=== PATIENT | female | born 1940 | race Caucasian/White ===

== ENCOUNTER 2024-07-07 18:41 | Inpatient (IN) | payer MEDICARE, SELFPAY ==
[2024-07-07] VITALS (14 sets, daily range): BP systolic 143–195; BP diastolic 74–87; PULSE 63–81; RESP 16–32; TEMP 36.9; O2SAT 92–100; BMI 20.7
--- NOTE | 2024-07-07 19:02 | ED_ITS ---
HPI - General Adult General Chief complaint: Fall Stated complaint: Fall/Down since 0100 Time Seen by Provider: 07/07/24 18:44 History of Present Illness HPI narrative: 84-year-old female with ground level fall last early this morning 1:00 a.m. about 17 hours ago in her long-term community home [facility] or she usually is living alone, she has not recall tripping on anything, however she accidentally turned the lights off and was trying to ambulate in the dark and fell, was unable to get up from the floor due to left hip pain, eventually her son came home, 911 was called, EMS had some concerns that the son did not seem to be assisting her to get up from the floor, otherwise house reportedly in good repair, no assault suspected. She denies headache, neck pain, upper mid lower back pain, upper extremity pains, right lower extremity pain, anterior chest pain, abdomen pain. She denies nausea or vomiting. No trouble breathing. No recent illness symptoms, diarrhea, vomiting, fevers, chills. Related Data Allergies Allergy/AdvReac Type Severity Reaction Status Date / Time No Known Drug Allergies Allergy Verified 07/07/24 22:55 Exam Narrative Exam Narrative: GENERAL: Well-developed patient, in mild distress. HEAD: Atraumatic. Normocephalic. EYES: Pupils equal round and reactive. Extraocular motions intact. No scleral icterus. No injection or drainage. ENT: Nose without bleeding, purulent drainage. Throat without erythema, tonsillar hypertrophy or exudate. Airway patent. NECK: Trachea midline. Non tender CARDIOVASCULAR: Regular rate and rhythm without murmurs, gallops, or rubs. RESPIRATORY: Clear to auscultation. Breath sounds equal bilaterally. No wheezes, rales, or rhonchi. GASTROINTESTINAL: Abdomen soft, non-tender, nondistended. EXTREMITIES: No edema or joint tenderness. Tenderness to left anterior and lateral hip, no limb like discrepancy, no gross deformity to thigh. Good DP pulses. BACK: Nontender without deformity or crepitance. No flank tenderness. NEURO: AOx3. 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 Stat 07/07/24 20:12 XR chest 1V Stat 07/07/24 20:13 EKG-12 Lead Stat 07/07/24 22:05 CBC Auto Diff [Complete Blood Count AUTO DIFF] Stat CMP [Comprehensive Metabolic Panel] Stat CPK [Creatine Kinase] Stat Prothrombin Time INR Stat 07/07/24 22:44 Urinalysis and Microscopic Stat Urine Culture Stat Acetaminophen (Acetaminophen 650 Mg Supp) 650 mg HI Q4HR PRN PRN Reason: Fever/Mild Pain (1-3) Enoxaparin Sodium (Enoxaparin 40 Mg/0.4 Ml Syringe) 40 mg SUBCUT DAILY [place] Hydromorphone HCl (Hydromorphone 0.5 Mg Inj) 1 mg IV Q2H PRN PRN Reason: Pain, Severe (7-10) Hydromorphone HCl (Hydromorphone 0.5 Mg Inj) 0.5 mg IV Q2H PRN PRN Reason: Pain, Moderate (4-6) Ceftriaxone Sodium 1,000 mg/ (Sodium Chloride) 100 mls @ 200 mls/hr IV Q24H [place] Naloxone HCl (Naloxone 0.4 Mg/Ml Vial) 0.2 mg IV Q2MIN PRN PRN Reason: Opiate Reversal Discontinued Medications Sodium Chloride (Normal Saline 0.9%) 1,000 mls @ 1,000 mls/hr IV BOLUS ONE Stop: 07/07/24 23:45 Last Infusion: 07/08/24 00:30 Dose: Infused Documented By: Admin: 07/07/24 22:57 Dose: 1,000 mls/hr Documented By: ALEKS Ceftriaxone Sodium 1,000 mg/ (Sodium Chloride) 100 mls @ 200 mls/hr IV NOW ONE Stop: 07/07/24 23:43 Last Infusion: 07/08/24 00:30 Dose: 0 mls/hr Documented By: Admin: 07/08/24 00:02 Dose: 200 mls/hr Documented By: ALEKS Vital Signs Vital signs: Vital Signs - 8 hr 07/07/24 18:46 07/07/24 18:47 07/07/24 18:48 Temperature 98.4 F Pulse Rate 81 72 Respiratory Rate 16 Blood Pressure 143/87 H 143/87 H Pulse Oximetry 98 97 Oxygen Delivery Method Room Air 07/07/24 19:00 07/07/24 19:00 07/07/24 19:30 Temperature Pulse Rate 70 65 Respiratory Rate 25 H 25 H Blood Pressure 195/83 H Pulse Oximetry 100 100 Oxygen Delivery Method Room Air 07/07/24 19:31 07/07/24 19:31 07/07/24 20:00 Temperature Pulse Rate 63 65 Respiratory Rate 27 H 32 H Blood Pressure 173/74 H Pulse Oximetry 100 92 Oxygen Delivery Method 07/07/24 20:00 07/07/24 20:30 07/07/24 21:00 Temperature Pulse Rate 69 66 Respiratory Rate 23 22 Blood Pressure 172/74 H Pulse Oximetry 99 100 Oxygen Delivery Method 07/07/24 21:30 07/07/24 22:00 07/07/24 22:30 Temperature Pulse Rate 70 72 68 Respiratory Rate 31 H 24 26 H Blood Pressure 172/74 H Pulse Oximetry 100 98 100 Oxygen Delivery Method 07/07/24 23:00 07/07/24 23:30 07/08/24 00:00 Temperature Pulse Rate 71 77 73 Respiratory Rate 24 20 22 Blood Pressure Pulse Oximetry 100 99 99 Oxygen Delivery Method Medical Decision Making Lab Data Lab results reviewed: Yes I reviewed the patient's lab results. Lab results narrative: White blood cell count 34842, hemoglobin 14, platelets adequate. Basic metabolic panel unremarkable. Liver functions show mild transaminitis, normal alk phos and T bili noted. PT INR 0.9 normal noted. CPK 2340 elevated. Renal function normal. Urinalysis pending. 07/07/24 22:05 07/07/24 22:05 Labs: Lab Results 07/07/24 07/07/24 Range/Units 22:05 22:44 WBC 10.8 (4.5-11.0) X10^3/uL RBC 4.53 (4.0-5.2) X10^6/uL Hgb 14.0 (12.0-16.0) g/dL Hct 42.6 (36-46) % MCV 94.2 (80-100) fL MCH 30.8 (26-34) PG MCHC 32.7 (30-36) % RDW 14.3 (11.6-14.8) % Plt Count 199 (150-400) X10^3/uL Neut % (Auto) 78.2 H (50-75) % Lymph % (Auto) 12.4 L (25-40) % [place] % (Auto) 8.9 (3-14) % Eos % (Auto) 0.1 L (2-4) % Baso % (Auto) 0.4 (0-2) % Neut # (Auto) 8500 H (5177-5207) /uL Lymph # (Auto) 1300 (4592-2057) /uL [place] # (Auto) 1000 H (0-900) /uL Eos # (Auto) 0 (0-450) /uL Baso # (Auto) 0 (0-100) /uL PT 10.5 (9.4-12.5) SECONDS INR 0.9 (0.9-1.3) Sodium 140 (137-145) mmol/L Potassium 4.7 (3.4-5.1) mmol/L Chloride 107 (98-107) mmol/L Carbon Dioxide 25 (22-32) mmol/L BUN 24 H (7-17) mg/dL Creatinine 0.76 (0.52-1.04) mg/dL Estimated GFR > 60 (>60) mL/min BUN/Creatinine Ratio 31.6 H (6-22) Glucose 119 H (80-110) mg/dL Calcium 11.6 H (8.4-10.2) mg/dL Total Bilirubin 1.0 (0.2-1.3) mg/dL AST 56 H (14-36) IU/L ALT 35 H (<35) IU/L Alkaline Phosphatase 113 (38-126) U/L Total Creatine Kinase 2341 H (30-135) U/L Total Protein 7.3 (6.3-8.2) g/dL Albumin 4.4 (3.5-5.0) g/dL Globulin 2.9 (1.7-4.1) g/dL Albumin/Globulin Ratio 1.5 (1.0-2.8) Urine Color Yellow Urine Appearance Sl cloudy Urine pH 6.0 (4.5-8.0) Ur Specific [place] 1.025 (1.000-1.035) Urine Protein Negative (Negative) Urine Glucose (UA) Negative (Negative) g/dL Urine Ketones Trace H (NEGATIVE) Urine Occult Blood 1+ H (Negative) Urine Nitrate Negative (Negative) Urine Bilirubin Negative (NEGATIVE) Urine Urobilinogen 0.2 (0.2) E.U./dL Ur Leukocyte Esterase Negative (NEGATIVE) Urine RBC 0-1/hpf (0-5/HPF) Urine WBC 0-1/hpf (0-5/HPF) Ur Squamous Epith Cells 0-1 /hpf (0-5/HPF) Urine Bacteria Many (>30) H (None) Ur Culture Indicated? Specimen cultured Vol Urine Centrifuged 10ml (spun) Imaging Data Extremity x-ray #1: Radiologist's Impression: [address] [address] XRay Report Signed Patient: Meggan Junior MR#: [id number] : 1940 Acct:[id number] Age/Sex: 84 / F Date of Service: 07/07/24 Loc: ED Accession Number: [id number] Procedure: XR hip w pel if done LT 2V Ordering Provider: Roberto Carlos Tariq MD PROCEDURE: XR HIP W PEL IF DONE LT 2V INDICATIONS: left hip pain, on ground x17h TECHNIQUE: AP pelvis with lateral view(s) of the left hip(s). COMPARISON: None. FINDINGS: Diffuse osseous demineralization. Overlapping wires at the level of the pelvis limit evaluation. Acute, mildly displaced fracture of the left subtrochanteric femur with possible involvement of the lesser trochanter and mild varus impaction of the dominant proximal fragment. Coiled intrauterine device overlying the pelvis. IMPRESSION: Acute, mildly displaced left subtrochanteric femoral fracture. Dictated by: Rad Da Silva M.D. on 07/07/2024 at 19:51 Approved by: Rad Da Silva M.D. on 07/07/2024 at 19:53 Chest x-ray: Radiologist's Impression: [address] [address] XRay Report Signed Patient: Meggan Junior MR#: [id number] : 1940 Acct:[id number] Age/Sex: 84 / F Date of Service: 07/07/24 Loc: ED Accession Number: [id number] Procedure: XR chest 1V Ordering Provider: Roberto Carlos Tariq MD PROCEDURE: XR CHEST 1V INDICATIONS: preop, hip fx TECHNIQUE: One view of the chest was acquired. COMPARISON: None. FINDINGS: Surgical changes and devices: None. Lungs and pleura: Lungs are clear. No pleural effusions or pneumothorax. Mediastinum: Mediastinal contours appear normal. Heart size is normal. Bones and chest wall: No suspicious bony lesions. Overlying soft tissues appear unremarkable. IMPRESSION: No acute cardiopulmonary abnormality is seen. Approved by: Randi Hubbard M.D.,Ph.D. on 07/07/2024 at 21:48 ECG Data Attestation: I personally reviewed and interpreted this ECG as follows: Interpretation: Preop study, 2123, normal sinus rhythm with rate of 72, no obvious ST segment elevation or depression changes. HI 142, QRS 80, QTC 433. MDM Narrative Medical decision making narrative: 84-year-old female with ground level fall in context of switching off the light in the dark, sounds mechanical in nature, no preceding/concomitant chest pain or syncope, with isolated left hip area discomfort, some tenderness on exam without limb length discrepancy. X-ray left hip/pelvis ordered. Labs sent, including CPK given her long length of time on the floor by report. X-ray left hip shows some trochanteric fracture, see radiology report. 2009, case discussed with Orthopedic surgery Dr. Murray, he will consult, anticipate admission to hospitalist. Preoperative studies pending Patient seemed to be objecting to preoperative studies, wanted to talk to family, her son was called, on route from [place] [address]109, son now in the room at bedside, repeated discussion of findings with patient and need for surgery and need for preoperative studies, she seems amenable to proceeding with preop studies, we will send labs, if GFR favorable likely will consult hospitalist to admit and coordinate with Orthopedic surgery for definitive care Preop EKG and chest x-ray unremarkable. Awaiting serum study results. Anticipate contact with hospitalist for admission Urinalysis shows many bacteria, suspicious for infection, urine culture sent by protocol. IV ceftriaxone. 2329, preop labs were drawn, sent, normal renal function. CPK 2300 elevated, consistent with rhabdomyolysis from her being down 18 hours by history, IV fluid bolus ordered. Will contact hospitalist regarding admission 4, case discussed with hospitalist Dr. Boyd who accepts patient for admission Critical Care Time Critical Care Time Critical Care Time: Yes Total Critical Care Time: 35 Attestation: The high probability of a clinically significant, sudden or life threatening deterioration of the [musculoskeletal, genitourinary] system(s) required my full and direct attention, intervention and personal management. The aggregate critical care time was [35] minutes. This time is in addition to time spent performing reported procedures but includes the following: [x] Data Review and interpretation [x] Patient assessment and monitoring of vital signs [x] Documentation [x] Medication orders and management Discharge Plan Departure Patient Disposition: Admitted As Inpatient Clinical Impression: Closed left hip fracture, Fall from ground level, Rhabdomyolysis, Urinary tract infection Admit Date/Time: 07/08/24 00:02 Admit Provider: Bereket Paz
--- NOTE | 2024-07-07 19:09 | PC.NURSE ---
this PERSONAL CONSULTANT put a purewick in place at 0700. Patient educated on how it works and why it was put in place.
--- NOTE | 2024-07-07 19:16 | PC.NURSE ---
Changed patient out of her wet clothing and into a dry gown with warm blankets. Pt placed on pure wix and educated on use. Pt sitting up in bed asking I heard you guys have good food here, can I eat? Provider states NPO status at this time.
--- NOTE | 2024-07-07 20:12 | DI.RAD.S_ITS ---
PROCEDURE: XR CHEST 1V INDICATIONS: preop, hip fx TECHNIQUE: One view of the chest was acquired. COMPARISON: None. FINDINGS: Surgical changes and devices: None. Lungs and pleura: Lungs are clear. No pleural effusions or pneumothorax. Mediastinum: Mediastinal contours appear normal. Heart size is normal. Bones and chest wall: No suspicious bony lesions. Overlying soft tissues appear unremarkable. IMPRESSION: No acute cardiopulmonary abnormality is seen. Approved by: Randi Hubbard M.D.,Ph.D. on 07/07/2024 at 21:48
--- NOTE | 2024-07-07 20:12 | PC.NURSE ---
spoke with pt and informed her her hip was broken, that she would have to be admitted to the hospital and explained to her the need for IV access to draw blood and possible pain management, pt verbalized understanding by stating that is why I was uncomfortable then pt stated she wanted to hold off on treatment at this time
--- NOTE | 2024-07-07 20:24 | PC.NURSE ---
Call to Pt son. Pt son is in [facility] and will be here [facility]. He understands that this is an emergent situation due to fracture, and that his mother has been refusing treatment from all the nursing staff. For us to proceed we will need to complete requested tests and studies.
--- NOTE | 2024-07-07 20:39 | PC.NURSE ---
Discussed with patient need for IV access and labs, patient verbalized understanding but declines placement of IV, labs, or other treatment. Patient states I'd rather not. I want to eat Patient states she has not eaten in 24 hours Explained that I cannot give her something to eat yet due to the emergency nature of her hip fracture and prolonged time from the fall, Explained that the IV would be a way to ensure she is hydrated if needed and she agrees as well as a way to medicate her for pain if she wished for that in the future as well. Explained the need for labs to check on her blood levels after the serious fall, fracture, and prolonged time on floor today. Asked patient what she would like done, what her wishes are, other than something to eat currently? Patient states I'm waiting to discuss with several important people in my life. Its late after 8pm, I've had to leave messages, and I'm waiting to hear back. Asked patient if there was any other way we could help reach the individuals she wants to speak with? Patient states No Phone rang and patient asked RN to leave room and give her privacy for phone call.
--- NOTE | 2024-07-07 21:24 | EKG_ITS ---
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
[2024-07-07 22:22] LABS: Add Manual Diff / Slide Review NO; Basophils Absolute Auto 0 /uL (0-100); Basophils Percent Auto 0.4 % (0-2); Eosinophils Absolute Auto 0 /uL (0-450); Eosinophils Percent Auto 0.1 % (2-4); Hematocrit 42.6 % (36-46); Lymphocytes Absolute Auto 1300 /uL (1100-4500); Lymphocytes Percent Auto 12.4 % (25-40); Mean Corpuscular HGB Conc 32.7 % (30-36); Mean Corpuscular Hemoglobin 30.8 PG (26-34); Mean Corpuscular Volume 94.2 fL (80-100); Monocytes Absolute Auto 1000 /uL (0-900); Monocytes Percent Auto 8.9 % (3-14); Neutrophils Absolute Auto 8500 /uL (1500-7000); Neutrophils Percent Auto 78.2 % (50-75); Platelet Count 199 X10^3/uL (150-400); Red Blood Cell Count 4.53 X10^6/uL (4.0-5.2); Red Cell Distribution Width 14.3 % (11.6-14.8); White Blood Cell Count 10.8 X10^3/uL (4.5-11.0)
[2024-07-07 22:29] LABS: INR 0.9 (0.9-1.3); Prothrombin Time 10.5 SECONDS (9.4-12.5)
[2024-07-07 22:35] LABS: Alanine Aminotransferase 35 IU/L (<35); Albumin 4.4 g/dL (3.5-5.0); Albumin Globulin Ratio 1.5 (1.0-2.8); Alkaline Phosphatase 113 U/L (38-126); Aspartate Aminotransferase 56 IU/L (14-36); BUN Creatinine Ratio 31.6 (6-22); Blood Urea Nitrogen 24 mg/dL (7-17); Calcium 11.6 mg/dL (8.4-10.2); Carbon Dioxide 25 mmol/L (22-32); Chloride 107 mmol/L (98-107); Estimated Glomerular Filt Rate > 60 mL/min (>60); Globulin 2.9 g/dL (1.7-4.1); Glucose 119 mg/dL (80-110); HEMOLYSIS < 15 (0-50); Potassium 4.7 mmol/L (3.4-5.1); Sodium 140 mmol/L (137-145); Total Protein 7.3 g/dL (6.3-8.2)
--- NOTE | 2024-07-07 22:53 | PC.NURSE ---
no urine noted in canister with pure wick, catheter inserted, and 600ml urine returned, catheter left in place for urinary retention as well as pelvic fracture, pt tolerated well
[2024-07-07 22:56] LABS: Creatine Kinase 2341 U/L (30-135)
[2024-07-07] MEDS: SODIUM CHLORIDE 0.9% 1,000 ML 1000 ML IV (22:57)
[2024-07-07 23:22] LABS: Appearance Urine UA SL CLOUDY; Bilirubin Urine UA NEGATIVE (NEGATIVE); Color Urine UA YELLOW; Glucose Urine UA NEGATIVE (Negative); Ketones Urine UA TRACE (NEGATIVE); Leukocyte Esterase Urine UA NEGATIVE (NEGATIVE); Nitrite Urine UA NEGATIVE (Negative); Occult Blood Urine UA 1+ (Negative); Protein Urine UA NEGATIVE (Negative); Specific Gravity Urine UA 1.025 (1.000-1.035); Urobilinogen Urine UA 0.2 E.U./dL (0.2)
[2024-07-07 23:37] LABS: Bacteria Urine Many (>30); Culture Indicated Urine Specimen Cultured; RBC Urine 0-1/HPF (0-5/HPF); Squamous Epithelial Cell Urine 0-1 /HPF (0-5/HPF); Urine Volume 10mL (spun); WBC Urine 0-1/HPF (0-5/HPF)
[2024-07-08] VITALS (7 sets, daily range): BP systolic 129–168; BP diastolic 63–92; PULSE 65–80; RESP 14–22; TEMP 36.7–37.6; O2SAT 96–100; BMI 20.7
[2024-07-08] MEDS: cefTRIAXone 1,000 MG in SODIUM CHLORIDE 0.9% 100 ML 200 MG IV ×2 (00:02→22:42)
--- NOTE | 2024-07-08 00:11 | P.HP_ITS ---
History of Present Illness History of Present Illness Date Patient Seen: 07/08/24 Time Patient Seen: 01:00 Chief complaint: Fall/Down since 99 Narrative: 84 y/o without significant PMH, on no medications, sustained GLF at home under unknown circumstances. Afterwards couldn't get up for 17 hours and presented with left subtrochanteric, minimally displaced femoral fracture. Underlying UTI possibly contributing to fall. Given antibiotic and admitted to medicine, NPO, on IVFs, for likely ORIF in AM. PFSH Social History household members: family Smoking Status: Never smoker alcohol intake: never Meds Home Medications and Allergies Home Medications Medication Instructions Recorded Confirmed Type No Known Home Medications 07/08/24 07/08/24 History Allergies Allergy/AdvReac Type Severity Reaction Status Date / Time No Known Drug Allergies Allergy Verified 07/07/24 22:55 Review of Systems Constitutional Comments: w/o fever, chills, sweats Cardiovascular Comments: w/o palpitations or chest pain Respiratory Comments: w/o shortness of breath Musculoskeletal Comments: left hip / leg pain with movement Neurologic Comments: w/o focal weakness or numbness Exam Vital Signs (past 8 hours): - 07/07/24 18:46 07/07/24 18:47 07/07/24 18:48 Temperature 98.4 F Pulse Rate 81 72 Respiratory Rate 16 Blood Pressure 143/87 H 143/87 H Pulse Oximetry 98 97 Oxygen Delivery Method Room Air 07/07/24 19:00 07/07/24 19:00 07/07/24 19:30 Temperature Pulse Rate 70 65 Respiratory Rate 25 H 25 H Blood Pressure 195/83 H Pulse Oximetry 100 100 Oxygen Delivery Method Room Air 07/07/24 19:31 07/07/24 19:31 07/07/24 20:00 Temperature Pulse Rate 63 65 Respiratory Rate 27 H 32 H Blood Pressure 173/74 H Pulse Oximetry 100 92 Oxygen Delivery Method 07/07/24 20:00 07/07/24 20:30 07/07/24 21:00 Temperature Pulse Rate 69 66 Respiratory Rate 23 22 Blood Pressure 172/74 H Pulse Oximetry 99 100 Oxygen Delivery Method 07/07/24 21:30 07/07/24 22:00 07/07/24 22:30 Temperature Pulse Rate 70 72 68 Respiratory Rate 31 H 24 26 H Blood Pressure 172/74 H Pulse Oximetry 100 98 100 Oxygen Delivery Method Oxygen Delivery Method Room Air Const Other: NAD, appears comfortable as long as at rest HENMT Other: atraumatic Resp Other: normal respiratory effort Cardio Other: RRR Neuro Other: w/o deficits Psych Other: mild encephalopathy Objective ECG Impression: NSR 80 Labs 07/07/24 22:05 07/07/24 22:05 Labs: Laboratory Results - last 24 hr 07/07/24 07/07/24 22:05 22:44 WBC 10.8 RBC 4.53 Hgb 14.0 Hct 42.6 MCV 94.2 MCH 30.8 MCHC 32.7 RDW 14.3 Plt Count 199 Neut % (Auto) 78.2 H Lymph % (Auto) 12.4 L [place] % (Auto) 8.9 Eos % (Auto) 0.1 L Baso % (Auto) 0.4 Neut # (Auto) 8500 H Lymph # (Auto) 1300 [place] # (Auto) 1000 H Eos # (Auto) 0 Baso # (Auto) 0 PT 10.5 INR 0.9 Sodium 140 Potassium 4.7 Chloride 107 Carbon Dioxide 25 BUN 24 H Creatinine 0.76 Estimated GFR > 60 BUN/Creatinine Ratio 31.6 H Glucose 119 H Calcium 11.6 H Total Bilirubin 1.0 AST 56 H ALT 35 H Alkaline Phosphatase 113 Total Creatine Kinase 2341 H Total Protein 7.3 Albumin 4.4 Globulin 2.9 Albumin/Globulin Ratio 1.5 Urine Color Yellow Urine Appearance Sl cloudy Urine pH 6.0 Ur Specific [place] 1.025 Urine Protein Negative Urine Glucose (UA) Negative Urine Ketones Trace H Urine Occult Blood 1+ H Urine Nitrate Negative Urine Bilirubin Negative Urine Urobilinogen 0.2 Ur Leukocyte Esterase Negative Urine RBC 0-1/hpf Urine WBC 0-1/hpf Ur Squamous Epith Cells 0-1 /hpf Urine Bacteria Many (>30) H Ur Culture Indicated? Specimen cultured Vol Urine Centrifuged 10ml (spun) Assessment & Plan Assessment and plan (1) Closed left hip fracture: Status: Acute (2) Fall from ground level: Status: Acute (3) Rhabdomyolysis: Status: Acute (4) Urinary tract infection: Status: Acute Assessment & Plan narrative: Lt Subtrochanteric Femur Fracture - NPO - pain management - IVFs - orthopedic surgery will see in AM for likely ORIF - minor rhabdomyolysis - IVFs, BMP in AM UTI - Rocephin - not septic DVT prophylaxis - Lovenox Time-Based Coding :: [TOTAL MINUTES] spent with patient and on the chart (including review of chart, obtaining history, exam, reviewing outside data, placing orders, documenting exam and treatment plan, and counseling patient) on [DATE].
[2024-07-08] MEDS: SODIUM CHLORIDE 0.9% 1,000 ML 100 ML IV ×2 (02:37→12:29)
--- NOTE | 2024-07-08 04:43 | PC.WOUNDPHOT ---
bruising/abrassions to billateral knees
--- NOTE | 2024-07-08 04:48 | PC.WOUNDPHOT ---
left foot toe nails
--- NOTE | 2024-07-08 04:48 | PC.WOUNDPHOT ---
right foot toe nails
--- NOTE | 2024-07-08 04:49 | PC.WOUNDPHOT ---
rash/redness to anterior chest
--- NOTE | 2024-07-08 07:21 | PM.HP.1 ---
History of Present Illness History of Present Illness Chief complaint: Fall/Down since 010 Narrative: From night doctor: 84 y/o without significant PMH, on no medications, sustained GLF at home under unknown circumstances. Afterwards couldn't get up for 17 hours and presented with left subtrochanteric, minimally displaced femoral fracture. Underlying UTI possibly contributing to fall. Given antibiotic and admitted to medicine, NPO, on IVFs, for likely ORIF in AM. S: She denies any pain the she appears to have little interest in talking. [facility] Social History household members: family Smoking Status: Never smoker alcohol intake: never Meds Home Medications and Allergies Home Medications Medication Instructions Recorded Confirmed Type No Known Home Medications 07/08/24 07/08/24 History Allergies Allergy/AdvReac Type Severity Reaction Status Date / Time No Known Drug Allergies Allergy Verified 07/07/24 22:55 Review of Systems Review of Systems Narrative: All else reviewed and otherwise unremarkable except as noted in the history and physical. Exam Vital Signs (past 8 hours): - 07/07/24 23:30 07/08/24 00:00 07/08/24 00:28 Temperature Pulse Rate 77 73 Respiratory Rate 20 22 Blood Pressure 168/70 H Pulse Oximetry 99 99 Oxygen Flow Rate 07/08/24 01:31 Temperature 98.5 F Pulse Rate 77 Respiratory Rate 22 Blood Pressure 156/77 H Pulse Oximetry 97 Oxygen Flow Rate 0 Oxygen Delivery Method Room Air Oxygen Flow Rate 0 Narrative Exam Narrative: NAD, alert and oriented, fluent speech, calm. Normocephalic skull, EOMI, anicteric sclera, symmetric pupils. Oropharynx unremarkable, no droop. Neck supple, midline trachea, no adenopathy. Lungs clear, normal rate and effort. Heart regular, no murmur gallop or rub. Abdomen is soft, non distended and non tender. Extremities are free of edema. Skin is free of rash or lesions. Joints are not swollen or deformed. Objective ECG Impression: Normal sinus rhythm Imaging Hip x-ray:: Radiologist's impression: Acute, mildly displaced left subtrochanteric femoral fracture. Chest x-ray: Radiologist's impression: No acute cardiopulmonary abnormality is seen. Labs 07/07/24 22:05 07/07/24 22:05 Labs: Laboratory Results - last 24 hr 07/07/24 07/07/24 22:05 22:44 WBC 10.8 RBC 4.53 Hgb 14.0 Hct 42.6 MCV 94.2 MCH 30.8 MCHC 32.7 RDW 14.3 Plt Count 199 Neut % (Auto) 78.2 H Lymph % (Auto) 12.4 L [place] % (Auto) 8.9 Eos % (Auto) 0.1 L Baso % (Auto) 0.4 Neut # (Auto) 8500 H Lymph # (Auto) 1300 [place] # (Auto) 1000 H Eos # (Auto) 0 Baso # (Auto) 0 PT 10.5 INR 0.9 Sodium 140 Potassium 4.7 Chloride 107 Carbon Dioxide 25 BUN 24 H Creatinine 0.76 Estimated GFR > 60 BUN/Creatinine Ratio 31.6 H Glucose 119 H Calcium 11.6 H Total Bilirubin 1.0 AST 56 H ALT 35 H Alkaline Phosphatase 113 Total Creatine Kinase 2341 H Total Protein 7.3 Albumin 4.4 Globulin 2.9 Albumin/Globulin Ratio 1.5 Urine Color Yellow Urine Appearance Sl cloudy Urine pH 6.0 Ur Specific [place] 1.025 Urine Protein Negative Urine Glucose (UA) Negative Urine Ketones Trace H Urine Occult Blood 1+ H Urine Nitrate Negative Urine Bilirubin Negative Urine Urobilinogen 0.2 Ur Leukocyte Esterase Negative Urine RBC 0-1/hpf Urine WBC 0-1/hpf Ur Squamous Epith Cells 0-1 /hpf Urine Bacteria Many (>30) H Ur Culture Indicated? Specimen cultured Vol Urine Centrifuged 10ml (spun) Assessment & Plan Assessment & Plan narrative: 1. Leftt Subtrochanteric Femur Fracture, present on admission and active. - NPO - pain management - IVFs - orthopedic surgery will see in AM for likely ORIF - minor rhabdomyolysis - IVFs, BMP in AM 2. UTI, present on admission and active. - Rocephin - not septic -monitor cultures DVT prophylaxis - Lovenox Time-Based Coding :: 35 min spent with patient and on the chart (including review of chart, obtaining history, exam, reviewing outside data, placing orders, documenting exam and treatment plan, and counseling patient) on 07/08. Quality MIPS - Admit I confirm the patient?s Advance Care Plan is present, Code status is documented, Surrogate decision maker is in patient?s record [If Yes, STOP here]: Yes MIPS - Meds 'Current medications' to include all prescriptions, [id number] products, herbals, cannabis/cannabidiol products, and vitamin/mineral/dietary (nutritional) supplements. I have utilized all available resources to obtain, update, or review the patient?s current medications. [If Yes, STOP here]: Yes
--- NOTE | 2024-07-08 11:21 | DIET.CONS ---
Dietary Consultation Note Admission Date: 07/08/2024 00:02 Assessment: 84 y F admitted after GLF and with UTI and rhabdomyolysis. Dietitian consulted for malnutrition. Met with pt at bedside. Report no PO intakes for a little over a day before admission to hospital. Before GLF was eating normally and normal appetite. Reports has not weighed self for long time but comments no changes in the way clothes fit. Per diet recall pt snacks throughout the day having small portions of: -breakfast items like serving of shredded wheat or eggs -1-2 yogurt cups per day -pieces of apples and oranges -a handful of nuts -1 portion of fish or shrimp son brings Patient is pescatarian. Nutrition focused physical exam shows: (exam done while patient lying down) -Moderate muscle wasting temporalis -Mild to moderate muscle wasting deltoid -Moderate muscle wasting interosseous Ht: 165.1 cm Wt: 56.699 kg BMI: 20.7 UBW: 56.7 kg per pt, no weight hx per EMR Last BM: 07/07/24 (07/08/24 01:08) MNA: 10 David Score: 13 Diet: 07/08/24 00:05 NPO Diet Diet Modifications: NPO Type: NPO except for Meds Labs: RBC 4.53 X10^6/uL (4.0-5.2) 07/07/24 22:05 Hgb 14.0 g/dL (12.0-16.0) 07/07/24 22:05 Hct 42.6 % (36-46) 07/07/24 22:05 Creatinine 0.76 mg/dL (0.52-1.04) 07/07/24 22:05 Nutrition Diagnosis: Moderate chronic protein calorie malnutrition r/t inadequate energy-protein intake as evidenced by mild to moderate muscle mass loss (temporalis, deltoid, interosseous), <75% estimated energy needs for >3 months per diet recall (moderate) and BMI underweight for age (20.7) Interventions: -Patient currently NPO pending ortho eval. Will monitor for plan of care. -Diet order for vegetarian + fish when diet is ordered per ortho/hospitalist EER: [id number] kcals (27-30 kcals/kg) 70 g protein (1.25 g/kg per moderate PCM) Monitoring/Evaluations: plan of care Electronically Signed by: Digna Macdonald 07/08/24 11:21 Clinical Dietitian [address] [address]
--- NOTE | 2024-07-08 12:58 | CM.DANOTE ---
Addendum entered by NEFTALI Patiño 07/08/24 16:09: FISHER GILL NET entered room and introduced self and role. Delivered copies of blank POA paperwork and senior resources booklet. Pt pleasant and chatty. gave verbal permission for CM team to coordinate with son as needed. appears open to SNF placement post op if recommended. PIERO Original Note: DCP Assessment Note pt is a 84yo F here following GLF resulting in a hip fracture. UTI. OR planned for today for repair. PCP none listed Payer Medicare and self pay FISHER GILL NET reviewed EMR. Per RN, pt sleeping heavily/not alert throughout morning. Denying pain medication. FISHER GILL NET had lengthy conversation with son Logan ([phone]). Per Logan, pt lives indep at [facility]. Logan has been staying with pt for last 3 months to assist her because her care needs have increased, lives in [place] normally. Logan reports pt is [employer] and adamantly is opposed to medical care. Logan reports he was with her after her fall, pt just refused to allow son to call 911 for help and that she tried to solve her problem through prayer. Logan reports her cottage is in a hording situation and that he's helped get her two storage units but she needs more. FISHER GILL NET reviewed different DCP options (SNF/HH, etc/). Pt reports he would heavily advocate for SNF for her and he will review the options for his preference. no hx of SNF or HH. Son reports if pt hesitant about surgery that RN can call him and he can talk to her on the phone as needed. Son reports no DPOA paperwork but he would see if mom would be willing to sign something. FISHER GILL NET to give pt information on PP CGs as well. FISHER GILL NET updated RN/provider on pt's hesitancy for medical care due to holiness background. P: OR planned for today. DCP pending post op recs/pt preference. anticipate SNF likely. CM team will follow closely for referrals/DCP coordination when appropriate. NEFTALI Patiño Discharge Planning/Care Management CM Discharge Assessment Start: 07/08/24 12:48 Freq: Status: Active Protocol: Document 07/08/24 12:48 PIERO (Rec: 07/08/24 12:58 [id number]) Discharge Planning Assessment Assigned Supervisor Sewer Maintenance NEFTALI Espino DPOA/Assigned Designee Name Levar Ford Contact Information [phone] Advance Directives? No History Provided By Patient Prior Living Arrangements [facility] Facility Comment [facility] Comment Son Logan has been staying with pt for past 3 months to help care for her, but normally lives in [place] Type of transporation used prior to Relies on Others admit Facility Name Admitted From: [facility] Willing to Return to Facility? Yes Independent with ADL's No Is patient alert and oriented? No Comment pt has not been very alert so far this admission, confusion likley due to UIT Patient/Family Preference [facility] Facility Transportation Arrangement anticipate dc to SNF following post op recs and pt preferences Additional Comment pending post op recs Review Status In Process Please Provide Date Initial DC 07/08/24 Assessment Was Performed Next Review Type Continued Stay Review
--- NOTE | 2024-07-08 17:29 | PC.NURSE ---
at 1650 patient is alert and awake. Preop RN arrived to transport patient via bed to PREOP. She does not appear anxious and is agreeable, as well as knowledgeable with surgical procedure.
--- NOTE | 2024-07-08 17:39 | P.CONS_ITS ---
History of Present Illness Consult details Date Patient Seen: 07/08/24 Time Patient Seen: 17:20 Chief complaint: Fall/Down since 0100 Reason for consult: Proximal femur fracture Narrative: 84-year-old female who sustained a fall resulting in a proximal femur fracture. Unfortunately patient was on the ground for close to 18 hours before she was found. Patient denies any other injuries except for the left hip. Meds Home Medications and Allergies Home Medications Medication Instructions Recorded Confirmed Type No Known Home Medications 07/08/24 07/08/24 History Allergies Allergy/AdvReac Type Severity Reaction Status Date / Time No Known Drug Allergies Allergy Verified 07/07/24 22:55 Exam Vital Signs (past 8 hours): - 07/08/24 11:00 07/08/24 16:00 Temperature 99.6 F 98.9 F Pulse Rate 69 80 Respiratory Rate 18 14 Blood Pressure 159/79 H 155/92 H Pulse Oximetry 96 100 Oxygen Flow Rate 0 0 Oxygen Delivery Method Room Air Oxygen Flow Rate 0 Narrative Exam Narrative: On physical exam, shortening and internal rotation to the left lower extremity. Compartments are soft. No sign of any knee or ankle swelling. Positive dorsiflexion and plantar flexion of the toes and ankle. Palpable pedal pulses. No sign of any issues with the right lower extremity. No issues with bilateral upper extremities. Objective Labs 07/07/24 22:05 07/07/24 22:05 Labs: Laboratory Results - last 24 hr 07/07/24 07/07/24 22:05 22:44 WBC 10.8 RBC 4.53 Hgb 14.0 Hct 42.6 MCV 94.2 MCH 30.8 MCHC 32.7 RDW 14.3 Plt Count 199 Neut % (Auto) 78.2 H Lymph % (Auto) 12.4 L [place] % (Auto) 8.9 Eos % (Auto) 0.1 L Baso % (Auto) 0.4 Neut # (Auto) 8500 H Lymph # (Auto) 1300 [place] # (Auto) 1000 H Eos # (Auto) 0 Baso # (Auto) 0 PT 10.5 INR 0.9 Sodium 140 Potassium 4.7 Chloride 107 Carbon Dioxide 25 BUN 24 H Creatinine 0.76 Estimated GFR > 60 BUN/Creatinine Ratio 31.6 H Glucose 119 H Calcium 11.6 H Total Bilirubin 1.0 AST 56 H ALT 35 H Alkaline Phosphatase 113 Total Creatine Kinase 2341 H Total Protein 7.3 Albumin 4.4 Globulin 2.9 Albumin/Globulin Ratio 1.5 Urine Color Yellow Urine Appearance Sl cloudy Urine pH 6.0 Ur Specific [place] 1.025 Urine Protein Negative Urine Glucose (UA) Negative Urine Ketones Trace H Urine Occult Blood 1+ H Urine Nitrate Negative Urine Bilirubin Negative Urine Urobilinogen 0.2 Ur Leukocyte Esterase Negative Urine RBC 0-1/hpf Urine WBC 0-1/hpf Ur Squamous Epith Cells 0-1 /hpf Urine Bacteria Many (>30) H Ur Culture Indicated? Specimen cultured Vol Urine Centrifuged 10ml (spun) PFSH Social History household members: family Tobacco & Substance Use Smoking Status: Never smoker alcohol intake: never Assessment & Plan Assessment & Plan narrative: Left intertrochanteric fracture. Based on the injury recommend surgical treatment. Went over the particular risks and limitations associated with the procedure. All of her questions and concerns were answered to her full satisfaction and a consent form was freely obtained. The risk, benefits, alternatives, possible complications, operative course, and postop outcomes were discussed. Complications including but not limiting to bleeding, infection, fracture, nerve injury, continued pain postoperatively or instability postoperatively were discussed in detail. Medical complications including but not limited to deep venous thrombosis event, anesthesia complications with excessive bleeding, vascular events or cardiac events and other possible complications were discussed in detail. Need for postoperative rehabilitation and anticipated hospital stay and clinical course were discussed in detail. Patient acknowledges understanding and elects to proceed with surgery. Time-Based Coding :: [TOTAL MINUTES] spent with patient and on the chart (including review of chart, obtaining history, exam, reviewing outside data, placing orders, documenting exam and treatment plan, and counseling patient) on [DATE].
--- NOTE | 2024-07-08 17:43 | PM.PREOP ---
Pre-operative Note Interval Note History & Physical reviewed/Exam performed by Physician: Yes Changes to H&P: No
--- NOTE | 2024-07-08 18:00 | SUR.PHASEII ---
Procedure cancelled. stated patient can have dinner and drink. See order for dinner tonight.
--- NOTE | 2024-07-08 18:02 | SUR.HOLD ---
Procedure cancelled. Patient transferred back to room 203. Report to Earlene MORRISON
--- NOTE | 2024-07-08 22:53 | PC.NURSE ---
Patient is alert and oriented. Respirations shallow but breath sounds are CTA with RA sat of 100%; on continuous oximetry per order. HRR. Denied nausea. BT hypoactive and denies flatus but reportedly had BM on 07/07. Indwelling catheter is patent; urine is clear, light yellow. Is repositioned q2h using bed tilt function as states she is more comfortable on right side and due to left femur fx are allowing her to be in position of comfort. Denies any pain. Refuses SCD's despite education re: risk/prevention of DVT. Fall risk score is high and bed alarm is activated.
[2024-07-09] VITALS (17 sets, daily range): BP systolic 90–143; BP diastolic 42–71; PULSE 52–78; RESP 12–24; TEMP 36.3–37.7; O2SAT 92–100; BMI 20.7
--- NOTE | 2024-07-09 | DI.RAD.S_ITS ---
PROCEDURE: XR HIP W PEL IF DONE LT 2V INDICATIONS: INTRAMEDULLARY NAILING FEMUR LEFT TECHNIQUE: 5 intraoperative views of the hip were acquired. COMPARISON: [facility], PILO, XR HIP W PEL IF DONE LT 2V, 07/07/2024, 19:13. FINDINGS: Bones: Intraoperative views during left proximal femoral fracture fixation. IMPRESSION: Intraoperative views during left proximal femoral fracture fixation. Dictated by: Cole Macias M.D. on 07/09/2024 at 19:45 Approved by: Cole Macias M.D. on 07/09/2024 at 19:46
[2024-07-09] MEDS: SODIUM CHLORIDE 0.9% 1,000 ML 100 ML IV ×2 (00:12→10:40)
[2024-07-09 06:16] LABS: Hematocrit 31.2 % (36-46); Hemoglobin 10.5 g/dL (12.0-16.0); Mean Corpuscular HGB Conc 33.6 % (30-36); Mean Corpuscular Hemoglobin 31.6 PG (26-34); Platelet Count 158 X10^3/uL (150-400); Red Blood Cell Count 3.32 X10^6/uL (4.0-5.2); Red Cell Distribution Width 14.2 % (11.6-14.8); White Blood Cell Count 10.1 X10^3/uL (4.5-11.0)
[2024-07-09 06:30] LABS: BUN Creatinine Ratio 33.8 (6-22); Blood Urea Nitrogen 22 mg/dL (7-17); Calcium 10.3 mg/dL (8.4-10.2); Carbon Dioxide 22 mmol/L (22-32); Chloride 112 mmol/L (98-107); Estimated Glomerular Filt Rate > 60 mL/min (>60); Glucose 110 mg/dL (80-110); HEMOLYSIS < 15 (0-50); Sodium 139 mmol/L (137-145)
--- NOTE | 2024-07-09 11:55 | CM.DPNOTE ---
Addendum entered by NEFTALI Patiño 07/09/24 14:51: Spoke with son Logan ([phone]). son reports that pt will likely need SNF placement, preference closest to home as possible. agreeable to referral to [facility]. Spoke with Marina at , kindly agreed to review and consider if PT/OT rec SNF post OP. SL Original Note: DCP note Per chart review, surgery cancelled yesterday. Per nursing staff, delayed due to equipment/surgeon concerns. SHERIFF'S DETECTIVE reviewed concerns with SHERIFF'S DETECTIVE supervisor cured meats Diana and RN Ornamental [employer] Supervisor Lakesha. Per nursing staff, plan for OR today. time unknown. Per RN, pt pleasant and cooperative. P: OR planned for today. DCP pending post op recs/pt preference. anticipate SNF likely. CM team will follow closely for referrals/DCP coordination when appropriate. NEFTALI Patiño
[2024-07-09] MEDS: CEFAZOLIN VIAL 2 GM in SODIUM CHLORIDE 0.9% 100 ML IV (18:13)
[2024-07-09] MEDS: ACETAMINOPHEN IV 1,000 MG/100 ML VIAL 400 MG IV (18:15)
--- NOTE | 2024-07-09 18:30 | SUR.OPER ---
Patient supine on padded Melber table, one arm on padded arm board at <90, other arm padded and secured with tape across patient's chest, both legs secured in padded traction boots and positioned per surgeon, padded post at patient's groin, pressure points checked and padded.
[2024-07-09] MEDS: LIDOCAINE 1% W/EPI 20ML 20 ML INJ (18:42)
[2024-07-09] MEDS: BUPIVACAINE 0.5% W/ EPI (PF) 30 ML VIAL INJ (18:44)
--- NOTE | 2024-07-09 19:13 | PM.OP.1 ---
Operative Date/Time/Diagnoses Date of procedure: 07/09/24 Time of procedure: 18:15 Pre-op diagnosis: LEFT PROXIMAL FEMUR FRACTURE Post-op diagnosis: same Procedure & Clinicians Procedure: INTRAMEDULLARY FIXATION LEFT PROXIMAL FEMUR FRACTURE Same procedure as scheduled: Yes Indications: LEFT PROXIMAL FEMUR FRACTURE Surgeon: Willy Murray Click Yes if Unassisted: Yes Anesthesia Type: General Operative Notes Findings: DISPLACED INTERTROCHANTERIC FEMUR FRACTURE LEFT Closure Type: primary Applied: implant(s) (OSMAN AND NEPHEW SHORT NAIL WITH A 95 MM SCREW AND A 90 MM COMPRESSION SCREW WITH A 35 MM LOCKING SCREW) Estimated Blood Loss (mL): 50 Procedure in detail: On date of service patient was met in the holding area where the operative site was signed and witnessed by the OR staff. Surgery was once again discussed with the patient in remaining questions or concerns they had were answered fully. Patient was taken back to the operating theater. General anesthesia was administered and then patient was transferred to the fracture table. Great care was taken to ensure that all bony prominences were appropriately padded. Both legs were placed into traction boots but only the left leg was placed under distraction and internal rotation in order to reduce the fracture. C-arm was brought in to verify reduction the fracture. Once we were satisfied with overall reduction, the left leg was prepped and draped in the normal sterile fashion. Ten blade was used to incise through skin and fascial tissue. Deep knife was then used to incise through the ITB band. Guidewire was placed on the greater tuberosity and entered in to the canal. This was verified with C-arm. Entry Reamer was used to ream the entry hole. A 11.5 mm nail was placed. The depth of the nail was verified under C-arm. Once we are satisfied with the depth a guidewire was placed into the femoral head and its position was verified with AP and lateral views. This was measured and then drilled. Patient measured 95 MM mm. Next, 95 MM mm screw was placed into the femoral head and this was verified in the lateral and AP views with the C-arm. A lag screw was placed as well for additional compression. Once we are satisfied with the 2 screws into the proximal femur the distal screw was placed in the static hole. C-arm was used to verify positioning while this was drilled and a 35 mm screw was used to lock the nail distally. Final x-rays were obtained. The 3 separate wound was copiously irrigated and then closed in a layered fashion. Patient's leg was cleaned, dried, and dressed. Patient was taken off the fracture table transferred to a stretcher and taken to the PACU in stable condition. Complications: none Post-operative Condition: stable Plan for aftercare: TOE-TOUCH WEIGHT-BEARING LEFT LOWER EXTREMITY 6 WEEKS
--- NOTE | 2024-07-09 19:31 | PM.PN.1 ---
Subjective Subjective Date Patient Seen: 07/09/24 Interval history: 84 F admitted with L Hip Fx, Pain control was okay this morning. OR planned for this afternoon. Calcium improved after IV fluids. Hg from 14 to 10.5, likely some component of hemodilution. Exam Vital Signs (past 8 hours): - 07/09/24 12:00 07/09/24 16:00 07/09/24 17:04 Temperature 97.7 F 98.2 F 99.7 F H Pulse Rate 68 68 78 Respiratory Rate 16 20 16 Blood Pressure 133/65 130/62 130/58 L Pulse Oximetry 100 97 94 Oxygen Delivery Method Room Air Oxygen Flow Rate 0 0 07/09/24 19:10 07/09/24 19:15 07/09/24 19:21 Temperature 98.9 F 98.7 F 98.7 F Pulse Rate 75 77 63 Respiratory Rate 12 12 12 Blood Pressure 107/42 L 90/53 L 143/65 H Pulse Oximetry 94 93 93 Oxygen Delivery Method Room Air Room Air Room Air Oxygen Flow Rate 07/09/24 19:28 Temperature 98.9 F Pulse Rate 71 Respiratory Rate 12 Blood Pressure 111/59 L Pulse Oximetry 96 Oxygen Delivery Method Room Air Oxygen Flow Rate Oxygen Delivery Method Room Air Oxygen Flow Rate 0 Narrative Exam Narrative: NAD, alert and oriented, fluent speech, calm. Normocephalic skull, EOMI, anicteric sclera, symmetric pupils. Oropharynx unremarkable, no droop. Neck supple, midline trachea, no adenopathy. Lungs clear, normal rate and effort. Heart regular, no murmur gallop or rub. Abdomen is soft, non distended and non tender. Extremities are free of edema. Skin is free of rash or lesions. Joints are not swollen or deformed. Objective Labs 07/09/24 06:05 07/09/24 06:05 Labs: Laboratory Results - last 24 hr 07/09/24 06:05 WBC 10.1 RBC 3.32 L Hgb 10.5 L Hct 31.2 L MCV 94.0 MCH 31.6 MCHC 33.6 RDW 14.2 Plt Count 158 Sodium 139 Potassium 4.0 Chloride 112 H Carbon Dioxide 22 BUN 22 H Creatinine 0.65 Estimated GFR > 60 BUN/Creatinine Ratio 33.8 H Glucose 110 Calcium 10.3 H PFSH Social History household members: family Smoking Status: Never smoker alcohol intake: never Assessment & Plan Assessment & Plan narrative: 1. Leftt Subtrochanteric Femur Fracture, present on admission and active. - NPO today for OR with orthopedic surgery - pain management with as needed medications including opiates. - continue IVF today 2. UTI, present on admission and active. - continue ceftriaxone for 3 days. 3. Hypercalcemia improved today with IV fluids. Calcium to 10.3. - continue to follow with BMP - if continues to be elevated consider PTH, which is a send out. 4. Anemia, normocytic, unclear chronicity - Hg from 14 to 10 today, likely component of hemodilution given dehydration on presentation and hypercalcemia. - continue to trend. Goal Hg >7. - no signs or symptoms of GI bleeding DVT prophylaxis - Lovenox Code: Full, surrogate is patient's son Time-Based Coding :: [TOTAL MINUTES] spent with patient and on the chart (including review of chart, obtaining history, exam, reviewing outside data, placing orders, documenting exam and treatment plan, and counseling patient) on [DATE].
--- NOTE | 2024-07-09 20:00 | PC.NURSE ---
Patient back from PACU at 19:45.
[2024-07-09] MEDS: cefTRIAXone 1,000 MG in SODIUM CHLORIDE 0.9% 100 ML 200 MG IV (23:03)
[2024-07-10] MEDS: LACTATED RINGERS 1,000 ML 100 ML IV ×2 (00:18→10:17)
[2024-07-10] MEDS: CEFAZOLIN 2 GM/100 ML PREMIX 100 ML IV ×2 (01:46→10:19)
[2024-07-10 02:45] VITALS: BP 101/54; PULSE 52; RESP 14; TEMP 36.3; O2SAT 98
[2024-07-10 06:48] LABS: Add Manual Diff / Slide Review NO; Basophils Absolute Auto 0 /uL (0-100); Basophils Percent Auto 0.2 % (0-2); Eosinophils Absolute Auto 0 /uL (0-450); Hematocrit 29.7 % (36-46); Hemoglobin 9.9 g/dL (12.0-16.0); Lymphocytes Absolute Auto 700 /uL (1100-4500); Lymphocytes Percent Auto 6.6 % (25-40); Mean Corpuscular HGB Conc 33.3 % (30-36); Mean Corpuscular Hemoglobin 31.6 PG (26-34); Monocytes Absolute Auto 800 /uL (0-900); Monocytes Percent Auto 8.3 % (3-14); Neutrophils Absolute Auto 8500 /uL (1500-7000); Neutrophils Percent Auto 84.9 % (50-75); Platelet Count 148 X10^3/uL (150-400); Red Blood Cell Count 3.13 X10^6/uL (4.0-5.2); Red Cell Distribution Width 14.1 % (11.6-14.8)
[2024-07-10 07:01] LABS: BUN Creatinine Ratio 28.4 (6-22); Blood Urea Nitrogen 19 mg/dL (7-17); Calcium 10.4 mg/dL (8.4-10.2); Carbon Dioxide 24 mmol/L (22-32); Chloride 110 mmol/L (98-107); Estimated Glomerular Filt Rate > 60 mL/min (>60); Glucose 150 mg/dL (80-110); HEMOLYSIS < 15 (0-50); Potassium 4.2 mmol/L (3.4-5.1); Sodium 138 mmol/L (137-145)
[2024-07-10 08:00] VITALS: BP 118/67; PULSE 58; RESP 17; TEMP 36.9; O2SAT 99
[2024-07-10] MEDS: ACETAMINOPHEN 325 MG TABLET 650 MG PO (08:40)
[2024-07-10] MEDS: DOCUSATE 100 MG CAPSULE PO (08:40)
[2024-07-10] MEDS: polyethylene glycoL 3350 17 GM POWD.PACK PO (08:41)
[2024-07-10] MEDS: ENOXAPARIN 40 MG/0.4 ML SYRINGE SUBCUT (08:41)
[2024-07-10] MEDS: SODIUM CHLORIDE 0.9% FLUSH 10 ML IV ×2 (08:42→21:35)
[2024-07-10] MEDS: OXYCODONE IR 5 MG TABLET PO (10:17)
--- NOTE | 2024-07-10 12:50 | PM.PNPO.1 ---
Subjective Subjective Interval history: 84-year-old female found down about 18 hours after a ground-level fall. She was found on imaging to have a left intertrochanteric fracture and underwent ORIF with Dr Murray on 07/09/2024. She worked w/ PT today and tells me 'it did not go well. I am going to have to be here for a long time.' Exam Vital Signs (past 8 hours): - 07/10/24 08:00 Temperature 98.4 F Pulse Rate 58 L Respiratory Rate 17 Blood Pressure 118/67 Pulse Oximetry 99 Oxygen Flow Rate 0 Oxygen Delivery Method Room Air Oxygen Flow Rate 0 Narrative Exam Narrative: 3/5 hip flexors, quadriceps, hamstrings; 5/5 PF, DF, EHL on left. Sensation to light touch intact throughout LLE. Calf soft and compressible. There is an SHERRIE wrap around the mid-thigh obsuring any dressings. There is an Aquacel a the proximal thigh thigh that is CDI. Objective Labs 07/10/24 06:13 07/10/24 06:13 Labs: Laboratory Results - last 24 hr 07/10/24 06:13 WBC 10.0 RBC 3.13 L Hgb 9.9 L Hct 29.7 L MCV 95.0 MCH 31.6 MCHC 33.3 RDW 14.1 Plt Count 148 L Neut % (Auto) 84.9 H Lymph % (Auto) 6.6 L [place] % (Auto) 8.3 Eos % (Auto) 0.0 L Baso % (Auto) 0.2 Neut # (Auto) 8500 H Lymph # (Auto) 700 L [place] # (Auto) 800 Eos # (Auto) 0 Baso # (Auto) 0 Sodium 138 Potassium 4.2 Chloride 110 H Carbon Dioxide 24 BUN 19 H Creatinine 0.67 Estimated GFR > 60 BUN/Creatinine Ratio 28.4 H Glucose 150 H Calcium 10.4 H PFSH Social History household members: family Smoking Status: Never smoker alcohol intake: never Assessment & Plan Post-op Assessment and plan (1) Closed left hip fracture: Assessment and Plan narrative: 1) Currently receiving enoxaparin for VTE prophylaxis. 2) Pt may be toe-touch weightbearing only on left leg for 6 weeks. 3) F/u w/ [facility] in 2 weeks for wound check and repeat imaging. 4) Pain control, VTE prophylaxis, disposition per hospitalist service. Postoperative Procedures: Procedures Operation Date: 07/08/24 19:15 <No data on this case meets the specified criteria> Operation Date: 07/09/24 17:00 Actual Procedure Side Surgeon p Intramedullary Nailing Femur Left Willy Murray MD Postoperative day: 1
--- NOTE | 2024-07-10 13:40 | PT.IIE ---
Current Diagnoses Rhabdomyolysis (07/08/24) Urinary tract infection, site not specified (07/08/24) Fracture of unspecified part of neck of left femur, initial encounter for closed fracture (07/08/24) Fall on same level, unspecified, initial encounter (07/08/24) Surgery Performed Operation Date: 07/08/24 19:15 <No data on this case meets the specified criteria> Operation Date: 07/09/24 17:00 Actual Procedures p Intramedullary Nailing Femur(Left) - Willy Murray MD Physical Therapy Inpatient Evaluation/Re-Eval M1 PT/OT-IP Prior Functional Status Start: 07/10/24 16:06 Freq: Status: Active Protocol: Document 07/10/24 16:06 [facility] (Rec: 07/10/24 16:18 [facility] [id number]) Medical Review Prior Functional Status Communication I Mobility and Gait Pt states uses a 4ww outside. Activities of Daily Living and IADL's Pt states has beedn able to do ADL needs and son asisst with IADL needs. Social History Household Members family Living Arrangements Half-Way Facility Number of Stairs To Enter/Railing? Pt states lives in a cottage with 10 steps with bilateral wide rails to enter. Home Environment Standard Height Toilet,Walk in Shower,Built-In Shower Seat Home Equipment Four Wheel Walker,Straight Cane,Hand Held Shower,Grab Bars Near Toilet,Grab Bars In Shower M1 PT/OT-IP Prior Functional Status Start: 07/10/24 16:13 Freq: NEEDED Status: Active Protocol: Document 07/10/24 13:40 AB (Rec: 07/10/24 16:33 AB [id number]) Medical Review Prior Functional Status Medical History Reviewed Yes Communication able to follow commands but needs repetitions; [email or web address] Mobility and Gait pt stated that she was modified independent with all mobilities and ambulation using 2 walking sticks indoors and a 4WW for outdoor mobility Social History Household Members children Living Arrangements Half-Way Facility Number of Floors (Floors) One Floor Number of Stairs To Enter/Railing? pt lives at [facility] has 12 steps B rails to get into her cottage per pt Home Environment Standard Height Toilet,Walk in Shower,Built-In Shower Seat Home Equipment Four Wheel Walker,Hand Held Shower,Grab Bars Near Toilet, Grab Bars In Shower Additional Social History Comment pt stated that her son lives with her automotive parts advisor has 2 walkign sticks M2 PT-IP Current Condition Start: 07/10/24 16:13 Freq: NEEDED Status: Active Protocol: Document 07/10/24 13:40 AB (Rec: 07/10/24 16:33 AB [id number]) Physical Therapy Current Condition Current Condition Evaluation Date 07/10/24 Treatment Diagnosis s/p fall; L femur fx s/p ORIF; difficulties in walking Onset Date 07/08/24 M3 PT-IP Subjective Start: 07/10/24 16:13 Freq: NEEDED Status: Active Protocol: Document 07/10/24 13:40 AB (Rec: 07/10/24 16:33 AB [id number]) Subjective Physical Therapy Visit Type Type Initial Evaluation Visit Start Time 13:40 Visit Stop Time 14:35 Number of COST ESTIMATING CLERK Visits 0 Physical Therapy Visit Comments Patient Comments agreed to do PT Therapy Pain Assessment Pain When Pain Assessed During Mobility Pain Present Pain Present Pain Reported Location left hip Intensity 2 Scale Used Numeric (0 - 10) Pain Management Techniques Distraction,Modification of Treatment,Re-positioning M4 PT-IP Mobility and Gait Start: 07/10/24 16:13 Freq: NEEDED Status: Active Protocol: Document 07/10/24 13:40 AB (Rec: 07/10/24 16:33 AB [id number]) PT-Bed Mobility Assessment Supine to Sit Supine to Sit Maximum Assistance,2 Person Assistance,Head of Bed Elevated,Bedrails Sit to Supine Sit to Supine Total Assistance,2 Person Assistance Scooting Scooting to Edge of Bed Dependent PT-Transfer Assessment Comments Mobility Comments pt in bed and agreed to do PT. obtained PLOF and home set up . pt with confusion and memory problems and unable to provide consistent info. pt supine in bed and presents with increase thoracic kyphosis and increase lateral trunk leaning to the R. BP in supine: 103/59. completed supine to sit max A x 2 to total A x 2 and max cues. increase time need to complete . max A for sitting balance on EOB. increase retrolean and lateral leaning to the R.. educated pt on TTWB on LLE. pt with confusion and unable to comprehend TTWB. This PT opted to do NWB on LLE for safety. attempted sit<>stand x 2 and pt unable to stand despite max x 2 provided. pt not able to push off on BLE. assisted pt back to bed. total A x 2 for scooting towards HOB. total A x 2 for sit to supine. positioned pt in bed. call light and table placed within reach. PT-Balance Assessment Sitting Balance and Reactions Static Sitting Balance Ability Poor Dynamic Sitting Balance Ability Poor Standing Balance and Reactions Static Standing Balance Ability Poor Dynamic Standing Balance Ability Poor Device Used FWW M5 PT-IP Objective Assessments Start: 07/10/24 16:13 Freq: NEEDED Status: Active Protocol: Document 07/10/24 13:40 AB (Rec: 07/10/24 16:33 AB [id number]) Orientation Orientation/Cognition Level of Alertness Confusional State Orientation Name Language Function Ability Hard of Hearing Safety Awareness Decreased Safety Awareness Memory Description Short Term Impaired,Chcf Impaired Strength Lower Extremity Strength Assessment Bilaterally Impaired Comments Strength Comments LLE: 2+/5 RLE: 3+/5 Muscle Tone Muscle Tone WNL Yes M6 PT-IP Treatment Start: 07/10/24 16:13 Freq: NEEDED Status: Active Protocol: Document 07/10/24 13:40 AB (Rec: 07/10/24 16:33 AB [id number]) Physical Therapy Treatment Exercises Exercises Heel Slides Education Education Provided Precautions,Weight Bearing Status,Post-Op Packet,Safety M7 PT-IP Assessment and Plan Start: 07/10/24 16:13 Freq: NEEDED Status: Active Protocol: Document 07/10/24 13:40 AB (Rec: 07/10/24 16:33 AB [id number]) PT Summary Assessment and Plan Potential Rehabilitation Potential Fair Status of Condition at Evaluation Evolving Summary Impairments Pain,ROM,Strength,Balance, Coordination,Sensation,Tone, Cognition,Bed Mobility, Transfers,Gait,Activity Tolerance Assessment Summary pt is an 84 y/o F s/p fall and sustained a L femur fx. pt underwent L hip ORIF and is TTWB on LLE. pt with confusion and difficulty following directions. pt requiring max A x 2 to total A x 2 and max cues with all mobilities. Recommending use of mechanical lift for transfers with nursing staff at this time. pt will require SNF rehab to improve mobility and independence. Goals Bed Mobility Goal Minimal Assistance Transfer Goal Minimal Assistance,Front Wheeled Walker Gait Goal Minimal Assistance,Front Wheel Walker Gait Distance 25 Other Goals improve bed mobility, transfers, ambulation using FWW 50 ft SBA Days to Meet Goals 10 Frequency of Treatment Frequency Of Treatment Once a Day Treatment Plan Physical Therapy Treatment Plan Bed Mobility Training,Transfer Training,Gait Training, Therapeutic Exercise,Balance Retraining,Post Op Education, Discharge Planning,Hot or Cold Pack,Neuromuscular Re-ed, Coordination Retraining,Manual Therapy Weight Bearing Status Weight Bearing Status Touch Down Weight Bearing Allowed Weight Bearing Amount (enter % LLE TTWB or #) (%) Recommendations To Nursing Amount of Assist Needed Mechanical Lift Discharge Recommendations PT Discharge Recommendations SNF Rehab Transportation Needs at Discharge Wheelchair/Cabulance,Stretcher /Ambulance
--- NOTE | 2024-07-10 14:38 | OT.IP.EVAL ---
Current Diagnoses Rhabdomyolysis (07/08/24) Urinary tract infection, site not specified (07/08/24) Fracture of unspecified part of neck of left femur, initial encounter for closed fracture (07/08/24) Fall on same level, unspecified, initial encounter (07/08/24) Surgery Performed Operation Date: 07/08/24 19:15 <No data on this case meets the specified criteria> Operation Date: 07/09/24 17:00 Actual Procedures p Intramedullary Nailing Femur(Left) - Willy Murray MD Occupational Therapy Inpatient Evaluation/Re-Eval M1 PT/OT-IP Prior Functional Status Start: 07/10/24 16:06 Freq: Status: Active Protocol: Document 07/10/24 16:06 [facility] (Rec: 07/10/24 16:18 [facility]3] [id number]) Medical Review Prior Functional Status Communication I Mobility and Gait Pt states uses a 4ww outside. Activities of Daily Living and IADL's Pt states has been able to do ADL needs and son assists with IADL needs. Social History Household Members family Living Arrangements [facility] Facility Number of Stairs To Enter/Railing? Pt states lives in a cottage with 10 steps with bilateral wide rails to enter. Home Environment Standard Height Toilet,Walk in Shower,Built-In Shower Seat Home Equipment Four Wheel Walker,Straight Cane,Hand Held Shower,Grab Bars Near Toilet,Grab Bars In Shower M2 OT-IP Current Condition Start: 07/10/24 15:59 Freq: Status: Active Protocol: Document 07/10/24 16:06 [facility] (Rec: 07/10/24 16:18 [facility]3] [id number]) Occupational Therapy Current Condition Current Condition Evaluation Date 07/10/24 Treatment Diagnosis GLF -L proximal femur fx s/P ORIF Diagnosis Onset Date 07/09/24 Weight Bearing Status Weight Bearing Status Touch Down Weight Bearing Allowed Weight Bearing Amount (enter % TTWB LLE or #) (%) M3 OT- IP Subjective and Pain Start: 07/10/24 15:59 Freq: Status: Active Protocol: Document 07/10/24 16:06 [facility] (Rec: 07/10/24 16:18 [facility]3] [id number]) OT- Subjective Occupational Therapy Visit Type Type Initial Evaluation Visit Start Time 13:55 Visit Stop Time 14:38 Occupational Therapy Visit Comments Patient Comments Pt agreed to get up , PT also present for initial therapy eval. Patient/Caregiver Goals TO get better. OT Pain Assessment Pain When Pain Assessed At Rest Pain Present Pain Present Pain Reported Location left hip Intensity 2 Scale Used Numeric (0 - 10) M4 OT- IP ADL's Start: 07/10/24 15:59 Freq: Status: Active Protocol: Document 07/10/24 16:06 [facility]3] (Rec: 07/10/24 16:18 [facility]3] [id number]) OT HEF-[place]-Ialsryo Comments OT Self-Feeding Comments Not at meal time. OT ADL-Grooming General Evaluation Grooming Ability Maximum Assistance Areas Needing Assistance Combing/Brushing Hair Comments OT Grooming Comments Assist to help braid her hair. OT ADL-Oral Care Comments Oral Care Comments Not performed. OT ADL-Dressing General Eval Lower Body Dressing Ability Total Assistance Areas Needing Assistance Socks OT ADL-Toileting General Evaluation Toileting Ability Total Assistance Areas Needing Assistance Empty Catheter or Colostomy OT ADL-Bathing Bathing Type Bathing Type Sponge Bath Comments OT Bathing Comments Sponge bath more appropriate at this time. M5 OT- IP IADL's Start: 07/10/24 15:59 Freq: Status: Active Protocol: Document 07/10/24 16:06 [facility]3] (Rec: 07/10/24 16:18 [facility]3] [id number]) OT-Instrumental Activities of Daily Living Home Safety Awareness Home Safety Comments Pt aware will not be able to care for herself at this time. Medication Management Medication Management Caregiver Administers Money Management Money Management Caregiver Provides Assistance Meal Preparation Meal Preparation Caregiver Provides Assist Component Assembler Supervisor Component Assembler Supervisor Caregiver Provides Assist M6 OT- IP Functional Cognition Start: 07/10/24 15:59 Freq: Status: Active Protocol: Document 07/10/24 16:06 [facility]3] (Rec: 07/10/24 16:18 [facility]3] [id number]) Cognitive Factors Limiting Selfcare Function Cognitive Ability Level of Alertness Alert,Drowsy Patient Orientation Name,Place,Situation Attention Span Ability Capable of Focused Attention, Capable of Sustained Attention Ability to Follow Commands Able to Follow One Step Commands with Increased Time, Able to Follow One Step Commands with Repetition Cognitive Comments Cognitive Assessment Comments Pt a bit groggy and needing simple commands to follow. OT- Vision and Hearing OT- Hearing Assessment OT- Hearing Assessment WFL OT- Vision Assessment Visual Acuity Glasses For Reading Visual Attentiveness WFL Occular Pursuits WFL Vision Assessment Comments Pt able to read the clock accurately. M7 OT- IP Mobility and Balance Start: 07/10/24 15:59 Freq: Status: Active Protocol: Document 07/10/24 16:06 [facility]3] (Rec: 07/10/24 16:18 [facility]3] [id number]) OT- Bed Mobility Assessment Supine to Sit Supine to Sit Assist Maximum Assistance,2 Person Assistance Sit to Supine Sit to Supine Assist Total Assistance,2 Person Assistance Scooting Scooting to Edge of Bed Maximum Assistance,1 Person Assistance,2 Person Assistance OT-Transfer Assessment Comments Mobility Comments BP supine 103/59, sitting 115/ 66 and after back in bed 125/ 71. MAX AX 2 to get to the edge of the bed, pt able to assist to move her RLE. Attempted to stand with MAX AX 2 and unable to stand all the way up and maintain TTWB. Total Assist to help get back to bed. OT- Balance Assessment Sitting Balance and Reactions Static Sitting Balance Ability Poor Dynamic Sitting Balance Ability Poor Standing Balance and Reactions Static Standing Balance Ability Poor Comments Other Balance Tests/Deviations/Treatment Pt has very flexed and curved : posture and needing initially MAX A to help get her to midline and afterwards still needing assist to sit to midline with CGA-MILIND. Pt tends to grab with her hands on therapist for reassurance. M8 OT- IP Objective Assessments Start: 07/10/24 15:59 Freq: Status: Active Protocol: Document 07/10/24 16:06 [facility]3] (Rec: 07/10/24 16:18 [facility]3] [id number]) OT Gross Range of Motion Upper Extremity Range of Motion ROM Impairments WFL for needs. OT Strength Upper Extremity Strength Assessment Within Functional Limits M9 OT- IP Assessment and Plan Start: 07/10/24 15:59 Freq: Status: Active Protocol: Document 07/10/24 16:06 [facility]3] (Rec: 07/10/24 16:18 [facility]3] [id number]) OT Summary Assessment and Plan Potential Rehabilitation Potential Good Analytic Complexity at Evaluation Moderate Summary OT Impairments Pain,Strength,Balance, Functional Cognition, Functional Mobility,Self- Feeding,Grooming,Dressing, Toileting,Bathing,Toilet Transfers,Shower Transfers, Activity Tolerance Progress Towards Goals Slow Progress due to Pain,Slow Progress due to Medical Issues,Slow Progress due to Activity Tolerance,Slow Progress due to Cognition Assessment Summary Pt MOD complexity and main barriers are pain, decreased balance, strength, groggy and needing extensive two person assist for bed mobility at this time. Pt will benefit from skilled rehab. Goals Self-Feeding Goal Independent Grooming Goal Independent Dressing Goal Moderate Assistance Toileting Goal Minimal Assistance Bathing Goal Moderate Assistance Toilet Transfer Goal Minimal Assistance Shower Transfer Goal Moderate Assistance Days to Meet Goals 30 Frequency of Treatment Other frequency 3-5x/week Treatment Plan OT Treatment Plan ADL Training,Functional Cognition Training,Functional Mobility,Patient/Family Education,Discharge Planning Other Treatment Recommendations and Next Pt to sit at edge of bed to Treatment Focus midline and be able to do grooming needs with SBA. Discharge Recommendations OT Discharge Recommendations SNF Rehab Transportation Needs at Discharge Wheelchair/Cabulance,Stretcher /Ambulance
--- NOTE | 2024-07-10 15:34 | CM.DPNOTE ---
DCP note ESE TEACHER reviewed EMR Per [facility], can accept pt. Plan for Monday dc pending medical stability. ESE TEACHER met with pt in room. report worked with PT/OT and agrees she should go to SNF prior to dc home. confirms preference is closest to home, agreeable to [facility]. ESE TEACHER answered questions to best of ability. pt reports she will update her son on the plan. ESE TEACHER completed PASRR. P: anticipate dc to [facility] Monday/when medically stable. time pending. CM team will continue to follow as needed NEFATLI Patiño
--- NOTE | 2024-07-10 17:38 | PM.PN.1 ---
Subjective Subjective Interval history: 84 F admitted with L Hip Fx, Pain control was okay this morning. She did not move very well today with therapies, feels a bit discouraged. Exam Vital Signs (past 8 hours): Oxygen Delivery Method Room Air Oxygen Flow Rate 0 Narrative Exam Narrative: NAD, alert and oriented, fluent speech, calm. Normocephalic skull, EOMI, anicteric sclera, symmetric pupils. Oropharynx unremarkable, no droop. Neck supple, midline trachea, no adenopathy. Lungs clear, normal rate and effort. Heart regular, no murmur gallop or rub. Abdomen is soft, non distended and non tender. Objective Labs 07/10/24 06:13 07/10/24 06:13 Labs: Laboratory Results - last 24 hr 07/10/24 06:13 WBC 10.0 RBC 3.13 L Hgb 9.9 L Hct 29.7 L MCV 95.0 MCH 31.6 MCHC 33.3 RDW 14.1 Plt Count 148 L Neut % (Auto) 84.9 H Lymph % (Auto) 6.6 L [place] % (Auto) 8.3 Eos % (Auto) 0.0 L Baso % (Auto) 0.2 Neut # (Auto) 8500 H Lymph # (Auto) 700 L [place] # (Auto) 800 Eos # (Auto) 0 Baso # (Auto) 0 Sodium 138 Potassium 4.2 Chloride 110 H Carbon Dioxide 24 BUN 19 H Creatinine 0.67 Estimated GFR > 60 BUN/Creatinine Ratio 28.4 H Glucose 150 H Calcium 10.4 H PFSH Social History household members: family Smoking Status: Never smoker alcohol intake: never Assessment & Plan Assessment & Plan narrative: 1. Leftt Subtrochanteric Femur Fracture, present on admission and active. - S/p orthopedic interventions on 07/09 - continue PT/OT - pain management with as needed medications including opiates. 2. UTI, present on admission and active. - continue ceftriaxone for 3 days. 3. Hypercalcemia improved today with IV fluids. Calcium to 10.4 today. - continue to follow with BMP - given slight rise sent PTH level this mroning. 4. Anemia, normocytic, unclear chronicity - Hg from 14 to 10 today, likely component of hemodilution given dehydration on presentation and hypercalcemia. Stable at 9.9 today. - continue to trend. Goal Hg >7. - no signs or symptoms of GI bleeding DVT prophylaxis - Lovenox Code: Full, surrogate is patient's son Dispo: likely SNF in a couple of days. Time-Based Coding :: [TOTAL MINUTES] spent with patient and on the chart (including review of chart, obtaining history, exam, reviewing outside data, placing orders, documenting exam and treatment plan, and counseling patient) on [DATE].
[2024-07-10 20:31] VITALS: BP 126/77; PULSE 72; RESP 16; TEMP 36.8; O2SAT 98
[2024-07-10] MEDS: cefTRIAXone 1,000 MG in SODIUM CHLORIDE 0.9% 100 ML 200 MG IV (23:25)
[2024-07-11 05:53] LABS: Hematocrit 26.8 % (36-46); Hemoglobin 9.1 g/dL (12.0-16.0); Mean Corpuscular Volume 94.3 fL (80-100); Platelet Count 179 X10^3/uL (150-400); Red Blood Cell Count 2.84 X10^6/uL (4.0-5.2); Red Cell Distribution Width 13.9 % (11.6-14.8); White Blood Cell Count 10.7 X10^3/uL (4.5-11.0)
[2024-07-11 06:15] LABS: BUN Creatinine Ratio 33.3 (6-22); Blood Urea Nitrogen 21 mg/dL (7-17); Calcium 10.3 mg/dL (8.4-10.2); Carbon Dioxide 26 mmol/L (22-32); Chloride 108 mmol/L (98-107); Estimated Glomerular Filt Rate > 60 mL/min (>60); Glucose 108 mg/dL (80-110); HEMOLYSIS < 15 (0-50); Potassium 4.2 mmol/L (3.4-5.1); Sodium 135 mmol/L (137-145)
--- NOTE | 2024-07-11 06:53 | P.PN_ITS ---
Subjective Subjective Date Patient Seen: 07/11/24 Time Patient Seen: 06:53 Interval history: 84-year-old female found down about 18 hours after a ground-level fall. She was found on imaging to have a left intertrochanteric fracture and underwent ORIF with Dr Murray on 07/09/2024. On my visit this morning, she is positioned very awkwardly in bed with at least half a dozen pillows and tells me she can't find the sheet she's been looking for. I attempted to move some pillows and give her some blankets, but she still seemed to be distressed about the sheet. Exam Vital Signs (past 8 hours): Oxygen Delivery Method Room Air Oxygen Flow Rate 0 Narrative Exam Narrative: Minimal participation with exam. 3/5 PF and DF, refuses to otherwise move her leg. Sensation to touch intact throughout LE, calf soft and compressible. SHERRIE wrap to mid-thigh. Objective Labs 07/11/24 05:46 07/11/24 05:46 Labs: Laboratory Results - last 24 hr 07/10/24 07/11/24 06:13 05:46 WBC 10.7 RBC 2.84 L Hgb 9.1 L Hct 26.8 L MCV 94.3 MCH 32.0 MCHC 34.0 RDW 13.9 Plt Count 179 Sodium 138 135 L Potassium 4.2 4.2 Chloride 110 H 108 H Carbon Dioxide 24 26 BUN 19 H 21 H Creatinine 0.67 0.63 Estimated GFR > 60 > 60 BUN/Creatinine Ratio 28.4 H 33.3 H Glucose 150 H 108 Calcium 10.4 H 10.3 H PFSH Social History household members: family Smoking Status: Never smoker alcohol intake: never Assessment & Plan Post-op Assessment and plan (1) Closed left hip fracture: Assessment and Plan narrative: 1) Currently receiving enoxaparin for VTE prophylaxis. 2) Pt may be toe-touch weightbearing only on left leg for 6 weeks. 3) F/u w/ [facility] in 2 weeks for wound check and repeat imaging. 4) Pain control, VTE prophylaxis, disposition per hospitalist service. Postoperative Procedures: Procedures Operation Date: 07/08/24 19:15 <No data on this case meets the specified criteria> Operation Date: 07/09/24 17:00 Actual Procedure Side Surgeon p Intramedullary Nailing Femur Left Willy Murray MD Postoperative day: 2
[2024-07-11 08:00] VITALS: BP 129/68; PULSE 76; RESP 20; TEMP 37.7; O2SAT 94
[2024-07-11] MEDS: SODIUM CHLORIDE 0.9% FLUSH 10 ML IV ×2 (09:00→20:54)
[2024-07-11] MEDS: ENOXAPARIN 40 MG/0.4 ML SYRINGE SUBCUT (09:05)
[2024-07-11 09:09] LABS: Parathyroid Hormone, Intact 129 pg/mL (15-65)
--- NOTE | 2024-07-11 11:20 | OT.IP.TRT ---
Current Diagnoses Rhabdomyolysis (07/08/24) Urinary tract infection, site not specified (07/08/24) Fracture of unspecified part of neck of left femur, initial encounter for closed fracture (07/08/24) Fall on same level, unspecified, initial encounter (07/08/24) Surgery Performed Operation Date: 07/08/24 19:15 <No data on this case meets the specified criteria> Operation Date: 07/09/24 17:00 Actual Procedures p Intramedullary Nailing Femur(Left) - Willy Murray MD Occupational Therapy Treatment Note M2 OT-IP Current Condition Start: 07/10/24 15:59 Freq: Status: Active Protocol: Document 07/10/24 16:06 [facility] (Rec: 07/10/24 16:18 [facility] [id number]) Occupational Therapy Current Condition Current Condition Evaluation Date 07/10/24 Treatment Diagnosis GLF -L proximal femur fx s/P ORIF Diagnosis Onset Date 07/09/24 Weight Bearing Status Weight Bearing Status Touch Down Weight Bearing Allowed Weight Bearing Amount (enter % TTWB LLE or #) (%) M3 OT- IP Subjective and Pain Start: 07/10/24 15:59 Freq: Status: Active Protocol: Document 07/11/24 11:22 [facility] (Rec: 07/11/24 11:35 [facility] [id number]) OT- Subjective Occupational Therapy Visit Type Type Treatment Note Visit Start Time 10:45 Visit Stop Time 11:20 Occupational Therapy Visit Comments Patient Comments Pt agreed to get up. Patient/Caregiver Goals TO get better. OT Pain Assessment Pain When Pain Assessed During Mobility Pain Present Pain Present Pain Reported Location left hip Pain Behaviors Facial Grimacing,Holding Area M4 OT- IP ADL's Start: 07/10/24 15:59 Freq: Status: Active Protocol: Document 07/11/24 11:22 [facility] (Rec: 07/11/24 11:35 [facility] [id number]) OT [id number] Comments OT Self-Feeding Comments Not at meal time. OT ADL-Grooming Comments OT Grooming Comments Pt able to use the wash cloth to wash her face. OT ADL-Oral Care Comments Oral Care Comments Pt not wanting to do and states nursing to do it for her later. OT ADL-Dressing General Eval Lower Body Dressing Ability Total Assistance Areas Needing Assistance Socks OT ADL-Toileting General Evaluation Toileting Ability Total Assistance Areas Needing Assistance Empty Catheter or Colostomy OT ADL-Bathing Bathing Type Bathing Type Sponge Bath Comments OT Bathing Comments Sponge bath more appropriate at this time. M5 OT- IP IADL's Start: 07/10/24 15:59 Freq: Status: Active Protocol: Document 07/10/24 16:06 [facility] (Rec: 07/10/24 16:18 [facility] [id number]) OT-Instrumental Activities of Daily Living Home Safety Awareness Home Safety Comments Pt aware will not be able to care for herself at this time. Medication Management Medication Management Caregiver Administers Money Management Money Management Caregiver Provides Assistance Meal Preparation Meal Preparation Caregiver Provides Assist Restaurant Floor Manager Restaurant Floor Manager Caregiver Provides Assist M6 OT- IP Functional Cognition Start: 07/10/24 15:59 Freq: Status: Active Protocol: Document 07/11/24 11:22 [facility] (Rec: 07/11/24 11:35 [facility] [id number]) Cognitive Factors Limiting Selfcare Function Cognitive Ability Level of Alertness Alert Patient Orientation Name,Place,Situation Attention Span Ability Capable of Focused Attention, Capable of Sustained Attention Ability to Follow Commands Able to Follow One Step Commands Cognitive Comments Cognitive Assessment Comments Pt more alert today. Pt able to use her phone to go through her emails. M7 OT- IP Mobility and Balance Start: 07/10/24 15:59 Freq: Status: Active Protocol: Document 07/11/24 11:22 [facility] (Rec: 07/11/24 11:35 [facility] [id number]) OT- Bed Mobility Assessment Scooting Scooting to Edge of Bed Total Assistance,2 Person Assistance OT-Transfer Assessment Comments Mobility Comments Pt not able to move her LLE, but able to wiggle her toes. Pt able minimally slide her RLE to edge of the bed. Able to use green angela to help get her to the edge of the bed. Pt while in bed able to use her LUE to help pull herself to midline. While on the edge of the bed pt heavily leans to the right and able to sit on her own with heavy use of her hands. Total assist to get back to bed. OT- Balance Assessment Sitting Balance and Reactions Static Sitting Balance Ability Fair Dynamic Sitting Balance Ability Poor Comments Other Balance Tests/Deviations/Treatment Improvement with sitting : balance today and able to do on her own with heavy use of hands on the bed after assist to get there. M8 OT- IP Objective Assessments Start: 07/10/24 15:59 Freq: Status: Active Protocol: Document 07/10/24 16:06 [facility] (Rec: 07/10/24 16:18 [facility] [id number]) OT Gross Range of Motion Upper Extremity Range of Motion ROM Impairments WFL for needs. OT Strength Upper Extremity Strength Assessment Within Functional Limits M9 OT- IP Assessment and Plan Start: 07/10/24 15:59 Freq: Status: Active Protocol: Document 07/11/24 11:22 [facility] (Rec: 07/11/24 11:35 [facility] [id number]) OT Summary Assessment and Plan Potential Rehabilitation Potential Fair Analytic Complexity at Evaluation Moderate Summary OT Impairments Pain,Strength,Balance, Functional Cognition, Functional Mobility,Self- Feeding,Grooming,Dressing, Toileting,Bathing,Toilet Transfers,Shower Transfers, Activity Tolerance Progress Towards Goals Progressing Toward Goals Assessment Summary Pt more alert today and tolerating sitting balance better. Pt still needing extensive assist x2 for bed mobility needs and will need use of the deven for transfers . Best to have stretcher to transport to SNF. Goals Self-Feeding Goal Independent Grooming Goal Independent Dressing Goal Moderate Assistance Toileting Goal Minimal Assistance Bathing Goal Moderate Assistance Toilet Transfer Goal Moderate Assistance Shower Transfer Goal Moderate Assistance Days to Meet Goals 40 Frequency of Treatment Other frequency 3-5x/week Treatment Plan OT Treatment Plan ADL Training,Functional Cognition Training,Functional Mobility,Patient/Family Education,Discharge Planning Other Treatment Recommendations and Next Pt to sit at edge of bed to Treatment Focus midline and be able to do grooming needs with SBA. Discharge Recommendations OT Discharge Recommendations SNF Rehab Transportation Needs at Discharge Stretcher/Ambulance
--- NOTE | 2024-07-11 11:35 | PT.IPTN ---
Current Diagnoses Rhabdomyolysis (07/08/24) Urinary tract infection, site not specified (07/08/24) Fracture of unspecified part of neck of left femur, initial encounter for closed fracture (07/08/24) Fall on same level, unspecified, initial encounter (07/08/24) Surgery Performed Operation Date: 07/08/24 19:15 <No data on this case meets the specified criteria> Operation Date: 07/09/24 17:00 Actual Procedures p Intramedullary Nailing Femur(Left) - Willy Murray MD Physical Therapy Treatment Note M2 PT-IP Current Condition Start: 07/10/24 16:13 Freq: NEEDED Status: Active Protocol: Document 07/10/24 13:40 [facility] (Rec: 07/10/24 16:33 [facility] [id number]) Physical Therapy Current Condition Current Condition Evaluation Date 07/10/24 Treatment Diagnosis s/p fall; L femur fx s/p ORIF; difficulties in walking Onset Date 07/08/24 M3 PT-IP Subjective Start: 07/10/24 16:13 Freq: NEEDED Status: Active Protocol: Document 07/11/24 10:44 [facility] (Rec: 07/11/24 11:34 [facility] [id number]) Subjective Physical Therapy Visit Type Type Treatment Note Visit Start Time 10:44 Visit Stop Time 11:18 Number of DRIVER SALES Visits 0 Physical Therapy Visit Comments Patient Comments Agreeable to PT Therapy Pain Assessment Pain When Pain Assessed During Mobility Pain Present Pain Present Pain Reported Location left hip Scale Used Pt does not rate M4 PT-IP Mobility and Gait Start: 07/10/24 16:13 Freq: NEEDED Status: Active Protocol: Document 07/11/24 10:44 [facility] (Rec: 07/11/24 11:34 [facility] [id number]) PT-Bed Mobility Assessment Scooting Scooting to Edge of Bed Dependent PT-Transfer Assessment Comments Mobility Comments Pt hook lying with HOB increased and lying on left side upon arrival. She had a lot of pillow support and bed is tilted to the left. PT removes tilt of bed and starts to move bed in cardiac chair position and then she is able to shift off her left side, sit better upright and maintain static sitting with heavy of B hands in forward, flexed position. Pt with severe scoliosis with major curvature to the right and this shifts weight to the right with static sitting. Pt attempts to wiggle right and left toes and does try to scoot right leg to the right. +2 dependent to get to EOB and back to bed in two en bloc movements. Pt sits EOB for several minutes with legs dangling and heavy assist of both hands, cues to use rails. Returned to supported sitting in cardiac chair position and pt begins to use her phone to check messages, prepare to listen to a podcast. PT-Balance Assessment Sitting Balance and Reactions Static Sitting Balance Ability Fair Dynamic Sitting Balance Ability Poor M5 PT-IP Objective Assessments Start: 07/10/24 16:13 Freq: NEEDED Status: Active Protocol: Document 07/10/24 13:40 [facility] (Rec: 07/10/24 16:33 AB [id number]) Orientation Orientation/Cognition Level of Alertness Confusional State Orientation Name Language Function Ability Hard of Hearing Safety Awareness Decreased Safety Awareness Memory Description Short Term Impaired,Mcfp Impaired Strength Lower Extremity Strength Assessment Bilaterally Impaired Comments Strength Comments LLE: 2+/5 RLE: 3+/5 Muscle Tone Muscle Tone WNL Yes M6 PT-IP Treatment Start: 07/10/24 16:13 Freq: NEEDED Status: Active Protocol: Document 07/11/24 10:44 [facility] (Rec: 07/11/24 11:34 MB [id number]) Physical Therapy Treatment Other Treatments Other Treatment Performed Encouraged ankle pumps and pt performs B toe wiggles today M7 PT-IP Assessment and Plan Start: 07/10/24 16:13 Freq: NEEDED Status: Active Protocol: Document 07/11/24 10:44 [facility] (Rec: 07/11/24 11:34 MB [id number]) PT Summary Assessment and Plan Potential Rehabilitation Potential Fair Status of Condition at Evaluation Evolving Summary Impairments Pain,ROM,Strength,Balance, Coordination,Sensation,Tone, Cognition,Bed Mobility, Transfers,Gait,Activity Tolerance Progress Towards Goals Slow Progress due to Pain,Slow Progress due to Activity Tolerance Assessment Summary Meggan perks up and does make eye contact and attempt to make effort with mobility today. Functional command following is slow and she con' t to require +2 dependent assistance to move to EOB and back. She does maintain static sitting balance better upright with UE assist today. Pt with severe kyphoscoliosis that causes right SB and lean in sitting. Left in cardiac chair position and pt is participating in phone tasks. Recommend this positioning for meals and she will require total lift to get OOB to chair . Goals Bed Mobility Goal Minimal Assistance Transfer Goal Minimal Assistance,Front Wheeled Walker Gait Goal Minimal Assistance,Front Wheel Walker Gait Distance 25 Other Goals improve bed mobility, transfers, ambulation using FWW 50 ft SBA Days to Meet Goals 10 Frequency of Treatment Frequency Of Treatment Once a Day Treatment Plan Physical Therapy Treatment Plan Bed Mobility Training,Transfer Training,Gait Training, Therapeutic Exercise,Balance Retraining,Post Op Education, Discharge Planning,Hot or Cold Pack,Neuromuscular Re-ed, Coordination Retraining,Manual Therapy Weight Bearing Status Weight Bearing Status Touch Down Weight Bearing Allowed Weight Bearing Amount (enter % LLE TTWB or #) (%) Recommendations To Nursing Amount of Assist Needed Mechanical Lift Discharge Recommendations PT Discharge Recommendations SNF Rehab Transportation Needs at Discharge Stretcher/Ambulance
[2024-07-11] MEDS: LACTATED RINGERS 1,000 ML 100 ML IV (12:15)
--- NOTE | 2024-07-11 12:29 | PC.WOUNDPHOT ---
Addendum entered by Kallie De Santiago R.N. 07/11/24 12:32: Noted patient pressure sore this a.m. and patient refusing to turn/reposition It is uncomfortable Noted LLE to hip +2 edema. Original Note: patient has been refusing to turn, due to severe scoliosis unable to lie back and she continues to hunch forward. Waffle cushion placed, mepilex placed and MD aware. Patient has been declining SCD's due to discomfort, refusing pain medications, refusing to eat this a.m. and for lunch, and refusing to use IS with low grade fever. Continued to provide education, and encourage patient.
--- NOTE | 2024-07-11 13:23 | DI.US.S_ITS ---
PROCEDURE: US PERIPH VENOUS LOW EXTREM LT INDICATIONS: L Leg edema, recent surgery, r/o DVT TECHNIQUE: Real-time imaging, as well as color and pulse Doppler interrogation, were performed of the lower extremity deep veins from the inguinal ligament to the popliteal fossa, with documentation of the visualized calf veins. COMPARISON: None. FINDINGS: The common femoral, femoral, popliteal, and the visualized calf veins are normally compressible, and free of intraluminal thrombus. Color and pulse Doppler demonstrate normal phasic intraluminal flow. There is normal augmentation response to distal compression maneuver. IMPRESSION: No findings of lower extremity deep venous thrombosis. Dictated by: Lorenzo Blackmon M.D. on 07/11/2024 at 16:19 Approved by: Lorenzo Blackmon M.D. on 07/11/2024 at 16:21
--- NOTE | 2024-07-11 13:24 | PM.PN.1 ---
Subjective Subjective Interval history: 84 F admitted with L Hip Fx, Pain control was okay this morning but she still has tightness with any movement. Added muscle relaxants. Exam Vital Signs (past 8 hours): - 07/11/24 08:00 Temperature 99.8 F H Pulse Rate 76 Respiratory Rate 20 Blood Pressure 129/68 Pulse Oximetry 94 Oxygen Flow Rate 0 Oxygen Delivery Method Room Air Oxygen Flow Rate 0 Narrative Exam Narrative: NAD, alert and oriented, fluent speech, calm. Normocephalic skull, EOMI, anicteric sclera, symmetric pupils. Oropharynx unremarkable, no droop. Neck supple, midline trachea, no adenopathy. Lungs clear, normal rate and effort. Heart regular, no murmur gallop or rub. Abdomen is soft, non distended and non tender. Extremities, 1-2+ pitting edema LLE Objective Labs 07/11/24 05:46 07/11/24 05:46 Labs: Laboratory Results - last 24 hr 07/10/24 07/11/24 06:13 05:46 WBC 10.7 RBC 2.84 L Hgb 9.1 L Hct 26.8 L MCV 94.3 MCH 32.0 MCHC 34.0 RDW 13.9 Plt Count 179 Sodium 135 L Potassium 4.2 Chloride 108 H Carbon Dioxide 26 BUN 21 H Creatinine 0.63 Estimated GFR > 60 BUN/Creatinine Ratio 33.3 H Glucose 108 Calcium 10.3 H PTH Intact 129 H Calcium (PTH Intact) 10.0 PTH Intact Intraop Comment PFSH Social History household members: family Smoking Status: Never smoker alcohol intake: never Assessment & Plan Assessment & Plan narrative: 1. Leftt Subtrochanteric Femur Fracture, present on admission and active. - S/p orthopedic interventions on 07/09 - continue PT/OT - pain management with as needed medications including opiates - significant leg swelling and pain on 07/11, ordered L US study to rule out DVT, pending. 2. UTI, present on admission and active. - continue ceftriaxone for 3 days. 3. Hypercalcemia improved today with IV fluids. Calcium to 10.3 today. - continue to follow with BMP - PTH is elevated (2x ULN despite high calcium >10, recommend outpatient evaluation with primary care provider for hyperparathyroidism. 4. Anemia, normocytic, unclear chronicity - Hg from 14 on admit to 9.1 today, likely component of hemodilution given dehydration on presentation and hypercalcemia. - continue to trend. Goal Hg >7. - no signs or symptoms of GI bleeding DVT prophylaxis - Lovenox Code: Full, surrogate is patient's son Dispo: likely SNF in 1-2 more days depending on pain control Time-Based Coding :: [TOTAL MINUTES] spent with patient and on the chart (including review of chart, obtaining history, exam, reviewing outside data, placing orders, documenting exam and treatment plan, and counseling patient) on [DATE].
[2024-07-11 20:00] VITALS: BP 126/71; PULSE 84; RESP 16; TEMP 36.9; O2SAT 96
--- NOTE | 2024-07-12 04:40 | PC.NURSE ---
Addendum entered by Deepthi Barba R.N. 07/12/24 04:53: Education for turning/repositioning provided. Original Note: Patient refusing turns throughout shift, continues to lie toward right side. She allowed bridging with pillows x 1, waffle cushion in place and turned bed throughout the night, as pt would allow. Reported some pain, but declined pain medication. Refused scheduled bowel medications stating that she doesn't need them. Refused lab draw.
[2024-07-12 08:00] VITALS: BP 119/62; PULSE 142; RESP 24; TEMP 37.6; O2SAT 96
--- NOTE | 2024-07-12 08:26 | EKG_ITS ---
[facility] [address] [place] [address] Test Date: 2024-07-12 Pat Name: Meggan Junior Department: [facility] Room: 203 Gender: Female [employer] Farmer: DARCY : 1940 Requested By: Order Number: [id number] Reading MD: Yuval Vasquez Measurements Intervals Oblong Rate: 157 P: [place]: QRS: 23 QRSD: 70 T: 132 QT: 262 QTc: 423 Interpretive Statements Critical Test Result: High HR Atrial fibrillation with rapid ventricular response Nonspecific ST and T wave abnormality Electronically Signed On 07-17-2024 23:41:42 PST by Yuval Vasquez
--- NOTE | 2024-07-12 08:34 | P.PN_ITS ---
Subjective Subjective Interval history: Patient found in bed. She is somnolent difficult to arise. He is able to answer that she has no pain. She says she is able to move her right foot has difficulty moving left foot. Exam Vital Signs (past 8 hours): - 07/12/24 08:00 Temperature 99.7 F H Pulse Rate 142 H Respiratory Rate 24 Blood Pressure 119/62 Pulse Oximetry 96 Oxygen Flow Rate 0 Oxygen Delivery Method Room Air Oxygen Flow Rate 0 Narrative Exam Narrative: 5/5 DF, PF, EHL right. 3/5 DF, PF, EHL left. Sensation to light touch intact throughout BLE. Calves soft, compressible, nontender. Aquacele dressing placed intraoperatively intact but bandage is saturated with blood. SCDs found off of patient. Objective Labs 07/11/24 05:46 07/11/24 05:46 Labs: Laboratory Results - last 24 hr 07/10/24 06:13 PTH Intact 129 H Calcium (PTH Intact) 10.0 PTH Intact Intraop Comment PFSH Social History household members: family Smoking Status: Never smoker alcohol intake: never Assessment & Plan Post-op Postoperative Procedures: Procedures Operation Date: 07/08/24 19:15 <No data on this case meets the specified criteria> Operation Date: 07/09/24 17:00 Actual Procedure Side Surgeon p Intramedullary Nailing Femur Left Willy Murray MD Postoperative day: 3 Postoperative plan: routine post-op care and ambulate Postoperative plan narrative: Patient was found tachycardic this morning. Medicine is aware and is running EKG. H&H is downward trending 26.8/9.1. Continue to monitor spoke with nursing staff. They state patient is refusing pain medication, muscle relaxers and is resisting turning and repositioning. SCDs were applied and turned on today. SCDs need to remain on when patient is in bed. Dressing change with Aquacel. Currently receiving enoxaparin for VTE prophylaxis. Work with PT for mobilization. Pt may be toe-touch weightbearing only on left leg for 6 weeks. F/u w/ [facility] in 2 weeks for wound check and repeat imaging. Pain control, VTE prophylaxis, disposition per hospitalist service. Time Spent With Patient Time with patient: 15-24 minutes
[2024-07-12 08:44] VITALS: BP 119/62; PULSE 142
[2024-07-12] MEDS: dilTIAZem 25 MG/5 ML SDV 10 MG IV (08:44)
--- NOTE | 2024-07-12 08:55 | DI.ECHO.S_ITS ---
[facility] : : [address] : : [place] : : [id number] : : Phone: [phone] Echocardiogram Report + + :Name: KEISHA MUNIZ Study Date: 07/12/2024 Height: 65 in : :Hospital ReadingLocation: Weight: 125 lb : : Gender: Female BSA: 1.6 m2 : :: 1940 Age: 84 yrs BP: 119/62 mmHg: :Reason For Study: NEW ATRIAL FIBRILLATION : :Ordering Physician: MELONY, : :NELLI Performed By: Timi Dotson : :Referring: NELLI TY : + + Interpretation Summary 1. The left ventricular contractility is normal. Estimate ejection fraction is greater than 55% with no segmental wall motion abnormalities. No LVH. Unable to comment on diastolic function. 2. The right ventricular contractility is normal. 3. Mild left atrial enlargement. All other cardiac chambers are of normal size. 4. Trace to mild mitral regurgitation. 5. Mild to moderate tricuspid regurgitation with estimated pulmonary systolic artery pressures of 52 to 55 mmHg. 6. No obvious intracardiac masses nor thrombi. 7. No hemodynamically significant pericardial effusion. 8. No obvious intracardiac shunts. Conclusion: Normal biventricular systolic function with mild to moderate valvular insufficiencies and severely elevated pulmonary arterial pressures. Procedure: A two-dimensional transthoracic echocardiogram with color flow and Doppler was performed. The study quality was technically adequate. There is no prior echocardiogram noted for this patient. The patient was in atrial fibrillation with heart rates between 107-157 bpm during the exam. Left Ventricle: The left ventricle is normal in size. There is normal left ventricular wall thickness. There is no ventricular septal defect visualized. The ejection fraction is estimated to be 60-65%. There are no focal wall motion abnormalities. Diastolic function could not be accurately assessed due to atrial fibrillation. Right Ventricle: The right ventricle is normal in size and function. Atria: The left atrium is mildly dilated. Right atrial size is normal. There is no Doppler evidence for an interatrial shunt. Mitral Valve: The mitral valve is normal in structure and function. There is mild mitral regurgitation. Aortic Valve: The aortic valve is trileaflet. The aortic valve is mildly calcified. The aortic valve opens well. There is trace aortic regurgitation. Tricuspid Valve: The tricuspid valve leaflets are thin and pliable. There is mild to moderate tricuspid regurgitation. Pulmonic Valve: The pulmonic valve leaflets are thin and pliable; valve motion is normal. There is no pulmonic valvular regurgitation. Great Vessels: The aortic root is normal size. The dimensions of the ascending aorta are normal. The pulmonary artery is normal size. The inferior vena cava was not well visualized. Pericardium/ Pleura There is no pericardial effusion. MMode/2D Measurements & Calculations LVIDd: 3.5 cm LVOT diam: 1.8 cm LVIDs: 2.3 cm Ao root diam: 2.8 cm FS: 33.8 % asc Aorta Diam: 2.8 cm EPSS: 0.59 cm IVSd: 0.86 cm LVPWd: 0.69 cm LV abarca. diameter/BSA (cm/m^2): 2.2 LV sys. diameter/BSA (cm/m^2): 1.4 LA A2 area: 17.5 cm2 RA long axis: 4.3 cm LA A4 area: 20.4 cm2 RA area: 13.5 cm2 LA length (vol): 5.1 cm RA vol: 36.1 ml LA vol: 59.5 ml RA : 22.3 ml/m2 LA vol index: 36.8 ml/m2 IVC diam: 1.6 cm RVD1 (basal): 3.2 cm RVD2 (mid): 2.5 cm TAPSE: 2.1 cm Doppler Measurements & Calculations Ao V2 max: 108.6 cm/sec LVOT Max Chong: 82.5 cm/sec Ao V2 mean: 78.4 cm/sec LV V1 max P.7 mmHg Ao max P.7 mmHg LV V1 VTI: 12.7 cm Ao mean P.7 mmHg SUSU(I,D): 1.9 cm2 Ao V2 VTI: 16.7 cm SUSU(V,D): 1.9 cm2 sev ratio: 0.76 SUSU indexed to BSA (cm^2/m^2): 1.2 MV E max chong: 85.7 cm/sec TR max chong: 323.9 cm/sec MV A max chong: 19.9 cm/sec TR max P.0 mmHg MV E/A: 4.3 PA V2 max: 66.1 cm/sec Med Peak E' Chong: 8.3 cm/sec PA V2 mean: 41.6 cm/sec E/E' med: 10.4 PA mean P.80 mmHg Lat Peak E' Chong: 11.0 cm/sec PA pr(Accel): 55.0 mmHg E/E' lat: 7.8 E/e' average: 9.1 MV dec time: 0.11 sec SV(LVOT): 32.2 ml Reading Physician:
[2024-07-12] MEDS: APIXABAN 5 MG TABLET 2.5 MG PO (09:07)
[2024-07-12] MEDS: LACTATED RINGERS 1,000 ML 100 ML IV ×2 (09:20→19:48)
[2024-07-12] MEDS: SODIUM CHLORIDE 0.9% FLUSH 10 ML IV ×2 (09:21→20:43)
--- NOTE | 2024-07-12 10:25 | PC.NURSE ---
Addendum entered by Kallie De Santiago R.N. 07/12/24 18:11: Patient converted back to NSR rate controlled 60-'s to 70's. Per MD Shirley still ordered to give po diltiazem. Explained rationale of med to patient but she continues to refuse po diltiazem, pain medication and suppository/softeners. Original Note: Upon MD assessment at bedside this a.m. Patient found with tachycardia, and irregular rhythm. HR 142.Per orders, pt had an EKG at bedside resulting in AFIB with RVR, 10 mg IV dilitiazem administered. Patient's BP dropped to 76/42. HR 90's-110's. Placed in reverse trendelenberg and notified MD, pt denies dizziness. IVF NS ordered for 100 ml/hr. Upon recheck BP 98/45 HR irregular from 90's -120's. Pt is placed on telemetry for continuous monitoring. She was able to take po eloquis but declining other meds this a.m. including pain medications/muscle relaxers. She does state she is uncomfortable and in pain, but continues to decline pain medications. Assisted to reposition, as able.
[2024-07-12 11:05] VITALS: BP 109/65; PULSE 120
[2024-07-12] MEDS: dilTIAZem 30 MG TABLET PO (11:05)
--- NOTE | 2024-07-12 11:20 | PT.IPTN ---
Current Diagnoses Rhabdomyolysis (07/08/24) Urinary tract infection, site not specified (07/08/24) Fracture of unspecified part of neck of left femur, initial encounter for closed fracture (07/08/24) Fall on same level, unspecified, initial encounter (07/08/24) Surgery Performed Operation Date: 07/08/24 19:15 <No data on this case meets the specified criteria> Operation Date: 07/09/24 17:00 Actual Procedures p Intramedullary Nailing Femur(Left) - Willy Murray MD Physical Therapy Treatment Note M2 PT-IP Current Condition Start: 07/10/24 16:13 Freq: NEEDED Status: Active Protocol: Document 07/10/24 13:40 AB (Rec: 07/10/24 16:33 AB [id number]) Physical Therapy Current Condition Current Condition Evaluation Date 07/10/24 Treatment Diagnosis s/p fall; L femur fx s/p ORIF; difficulties in walking Onset Date 07/08/24 M3 PT-IP Subjective Start: 07/10/24 16:13 Freq: NEEDED Status: Active Protocol: Document 07/12/24 11:20 AB (Rec: 07/12/24 12:04 AB [id number]) Subjective Physical Therapy Visit Type Type Treatment Note Visit Start Time 11:20 Visit Stop Time 11:45 Number of BRAIN PICKER Visits 0 Physical Therapy Visit Comments Patient Comments pt keeps her eyes closed but able to respond to questions Therapy Pain Assessment Pain When Pain Assessed During Mobility Pain Present Pain Present Pain Reported Location left hip Scale Used pain scale not stated Pain Behaviors Facial Grimacing,Guarding, Holding Area,Moaning,Wincing Pain Management Techniques Distraction,Modification of Treatment,Re-positioning, Timing of Activity with Medications M4 PT-IP Mobility and Gait Start: 07/10/24 16:13 Freq: NEEDED Status: Active Protocol: Document 07/12/24 11:20 AB (Rec: 07/12/24 12:04 AB [id number]) PT-Bed Mobility Assessment Supine to Sit Supine to Sit Total Assistance,2 Person Assistance,Head of Bed Elevated,Bedrails Sit to Supine Sit to Supine Total Assistance,2 Person Assistance Scooting Scooting to Edge of Bed Dependent Scooting Up and Down in Bed Dependent PT-Transfer Assessment Comments Mobility Comments pt in bed. pt awake but keeps her eyes closed. instructed to keep eyes open but does not maintain. pt able to answer questions. pt completed supine to sit total A x 2 and max cues. HOB elevated. max A for sitting balance on EOB. nurse came in and stated that pt is on A-fib with RVR. O2 sat: 98% and HR varies: 121- 148. pt scooted towards HOB total A x 2 and max cues. assisted pt back in bed. total A x 2. positioned pt in bed. call light and table placed within reach. M5 PT-IP Objective Assessments Start: 07/10/24 16:13 Freq: NEEDED Status: Active Protocol: Document 07/10/24 13:40 AB (Rec: 07/10/24 16:33 AB [id number]) Orientation Orientation/Cognition Level of Alertness Confusional State Orientation Name Language Function Ability Hard of Hearing Safety Awareness Decreased Safety Awareness Memory Description Short Term Impaired,Long-Term Impaired Strength Lower Extremity Strength Assessment Bilaterally Impaired Comments Strength Comments LLE: 2+/5 RLE: 3+/5 Muscle Tone Muscle Tone WNL Yes M6 PT-IP Treatment Start: 07/10/24 16:13 Freq: NEEDED Status: Active Protocol: Document 07/12/24 11:20 AB (Rec: 07/12/24 12:04 AB [id number]) Physical Therapy Treatment Education Education Provided Safety M7 PT-IP Assessment and Plan Start: 07/10/24 16:13 Freq: NEEDED Status: Active Protocol: Document 07/12/24 11:20 AB (Rec: 07/12/24 12:04 AB [id number]) PT Summary Assessment and Plan Potential Rehabilitation Potential Fair Summary Impairments Pain,ROM,Strength,Balance, Coordination,Sensation,Tone, Cognition,Bed Mobility, Transfers,Gait,Activity Tolerance Progress Towards Goals Slow Progress - Other Assessment Summary pt has a decline in mobility today requiring total A x 2 and max cues. pt with decrease participation and does not keep her eyes open but able to answer questions. pt also has new onset of A-fib with RVR limiting activity tolerance. will continue to assess progress. Goals Bed Mobility Goal Minimal Assistance Transfer Goal Minimal Assistance,Front Wheeled Walker Gait Goal Minimal Assistance,Front Wheel Walker Gait Distance 25 Other Goals improve bed mobility, transfers, ambulation using FWW 50 ft SBA Days to Meet Goals 10 Frequency of Treatment Frequency Of Treatment Once a Day Treatment Plan Physical Therapy Treatment Plan Bed Mobility Training,Transfer Training,Gait Training, Therapeutic Exercise,Balance Retraining,Post Op Education, Discharge Planning,Hot or Cold Pack,Neuromuscular Re-ed, Coordination Retraining,Manual Therapy Weight Bearing Status Weight Bearing Status Touch Down Weight Bearing Allowed Weight Bearing Amount (enter % LLE TTWB or #) (%) Recommendations To Nursing Amount of Assist Needed Mechanical Lift Discharge Recommendations PT Discharge Recommendations SNF Rehab Transportation Needs at Discharge Stretcher/Ambulance
--- NOTE | 2024-07-12 11:46 | OT.IP.TRT ---
Current Diagnoses Rhabdomyolysis (07/08/24) Urinary tract infection, site not specified (07/08/24) Fracture of unspecified part of neck of left femur, initial encounter for closed fracture (07/08/24) Fall on same level, unspecified, initial encounter (07/08/24) Surgery Performed Operation Date: 07/08/24 19:15 <No data on this case meets the specified criteria> Operation Date: 07/09/24 17:00 Actual Procedures p Intramedullary Nailing Femur(Left) - Willy Murray MD Occupational Therapy Treatment Note M2 OT-IP Current Condition Start: 07/10/24 15:59 Freq: Status: Active Protocol: Document 07/10/24 16:06 [facility] (Rec: 07/10/24 16:18 [facility] [id number]) Occupational Therapy Current Condition Current Condition Evaluation Date 07/10/24 Treatment Diagnosis GLF -L proximal femur fx s/P ORIF Diagnosis Onset Date 07/09/24 Weight Bearing Status Weight Bearing Status Touch Down Weight Bearing Allowed Weight Bearing Amount (enter % TTWB LLE or #) (%) M3 OT- IP Subjective and Pain Start: 07/10/24 15:59 Freq: Status: Active Protocol: Document 07/12/24 11:56 [facility] (Rec: 07/12/24 12:04 [facility] [id number]) OT- Subjective Occupational Therapy Visit Type Type Treatment Note Visit Start Time 11:20 Visit Stop Time 11:46 Occupational Therapy Visit Comments Patient Comments Pt very drowsy and needing increased time to respond. Patient/Caregiver Goals TO get better. OT Pain Assessment Pain When Pain Assessed During Mobility Pain Present Pain Present Pain Reported M4 OT- IP ADL's Start: 07/10/24 15:59 Freq: Status: Active Protocol: Document 07/12/24 11:56 [facility] (Rec: 07/12/24 12:04 [facility] [id number]) OT [id number] Comments OT Self-Feeding Comments Not at meal time. OT ADL-Grooming General Evaluation Grooming Ability Maximum Assistance Comments OT Grooming Comments Pt able to get the wash cloth to her face but not able to complete the task and needing asisst today. OT ADL-Dressing General Eval Lower Body Dressing Ability Total Assistance Areas Needing Assistance Socks OT ADL-Toileting General Evaluation Toileting Ability Total Assistance Areas Needing Assistance Empty Catheter or Colostomy Comments OT Toileting Comments Noted water blisters on her inner thighs by her knees, nursing aware. OT ADL-Bathing Comments OT Bathing Comments Sponge bath more appropriate at this time. M5 OT- IP IADL's Start: 07/10/24 15:59 Freq: Status: Active Protocol: Document 07/10/24 16:06 [facility] (Rec: 07/10/24 16:18 [facility] [id number]) OT-Instrumental Activities of Daily Living Home Safety Awareness Home Safety Comments Pt aware will not be able to care for herself at this time. Medication Management Medication Management Caregiver Administers Money Management Money Management Caregiver Provides Assistance Meal Preparation Meal Preparation Caregiver Provides Assist Oil Exploration Engineer Oil Exploration Engineer Caregiver Provides Assist M6 OT- IP Functional Cognition Start: 07/10/24 15:59 Freq: Status: Active Protocol: Document 07/11/24 11:22 [facility] (Rec: 07/11/24 11:35 [facility] [id number]) Cognitive Factors Limiting Selfcare Function Cognitive Ability Level of Alertness Alert Patient Orientation Name,Place,Situation Attention Span Ability Capable of Focused Attention, Capable of Sustained Attention Ability to Follow Commands Able to Follow One Step Commands Cognitive Comments Cognitive Assessment Comments Pt more alert today. Pt able to use her phone to go through her emails. M7 OT- IP Mobility and Balance Start: 07/10/24 15:59 Freq: Status: Active Protocol: Document 07/12/24 11:56 [facility] (Rec: 07/12/24 12:04 [facility] [id number]) OT- Bed Mobility Assessment Supine to Sit Supine to Sit Assist Total Assistance,2 Person Assistance Sit to Supine Sit to Supine Assist Total Assistance,2 Person Assistance OT-Transfer Assessment Comments Mobility Comments Pt not able to assist for bed mobility needs today and total assist for all needs. Pt also needing MODA to help sit up today. Pt also having increased HR and therefore assisted pt back into bed. OT- Balance Assessment Sitting Balance and Reactions Static Sitting Balance Ability Poor M8 OT- IP Objective Assessments Start: 07/10/24 15:59 Freq: Status: Active Protocol: Document 07/10/24 16:06 [facility] (Rec: 07/10/24 16:18 [facility] [id number]) OT Gross Range of Motion Upper Extremity Range of Motion ROM Impairments WFL for needs. OT Strength Upper Extremity Strength Assessment Within Functional Limits M9 OT- IP Assessment and Plan Start: 07/10/24 15:59 Freq: Status: Active Protocol: Document 07/12/24 11:56 [facility] (Rec: 07/12/24 12:04 [facility] [id number]) OT Summary Assessment and Plan Potential Rehabilitation Potential Poor Analytic Complexity at Evaluation Moderate Summary OT Impairments Pain,Strength,Balance, Functional Cognition, Functional Mobility,Self- Feeding,Grooming,Dressing, Toileting,Bathing,Toilet Transfers,Shower Transfers, Activity Tolerance Progress Towards Goals Slow Progress due to Pain,Slow Progress due to Medical Issues,Slow Progress due to Activity Tolerance,Slow Progress due to Cognition Assessment Summary Pt very drowsy and having difficulty to follow commands today. Per nursing pt having A -fib earlier. Pt's hip dressing saturated and needing to be changed, nursing aware . Pt Total Assist x2 for bed mobility needs and appears to be declining overall. Spoke to case management of pt's decline and may not be a good candidate for rehab as may want to consider other options - Hospice/LTC unless able to improve. Goals Self-Feeding Goal Standby Assistance Grooming Goal Standby Assistance Dressing Goal Moderate Assistance Toileting Goal Moderate Assistance Bathing Goal Moderate Assistance Toilet Transfer Goal Moderate Assistance Shower Transfer Goal Moderate Assistance Days to Meet Goals 50 Frequency of Treatment Other frequency 3-5x/week Treatment Plan OT Treatment Plan ADL Training,Functional Cognition Training,Functional Mobility,Patient/Family Education,Discharge Planning Discharge Recommendations OT Discharge Recommendations SNF Rehab,LTAC Transportation Needs at Discharge Stretcher/Ambulance
--- NOTE | 2024-07-12 11:47 | CM.DPNOTE ---
DCP Cont Reviewed chart. Patient discussed in multidisciplinary rounds. Patient has developed new Afib w/RVR and is not ready for discharge today to [facility]. DOMINGA 2.1-2.2. According to Marina at , patient has an admission slot being held for Monday 2.2 at 1130. Plan: Discharge to SNF via wheelchair van. PASRR done. CM team following clinical course closely . MARK
[2024-07-12 12:00] VITALS: BP 109/65; PULSE 120; RESP 24; TEMP 37.4; O2SAT 96
[2024-07-12 16:00] VITALS: BP 123/66; PULSE 71; RESP 16; TEMP 37.5; O2SAT 95
--- NOTE | 2024-07-12 16:58 | PM.PN.IH.1 ---
Subjective Subjective Date Patient Seen: 07/12/24 Time Patient Seen: 07:10 Interval history: 84 y/o without significant PMH, on no medications, sustained GLF at home under unknown circumstances. Afterwards couldn't get up for 17 hours and presented with left subtrochanteric, minimally displaced femoral fracture. Underlying UTI possibly contributing to fall. Given antibiotic and admitted to medicine, NPO, on IVFs, for likely ORIF in AM. Interval history: Patient has no complaints this morning. On palpation she is noted to be in a tachycardic rhythm, with finding of atrial fibrillation rapid ventricular response. She is given 10 mg IV diltiazem with improvement heart rate from the 150s to 90s, with blood pressure down to 72 mmHg systolic, responding to 1 L LR with blood pressure in the 90s to 100s. Denies chest pain or shortness of breath. Exam Vital Signs (past 8 hours): - 07/12/24 11:05 07/12/24 12:00 07/12/24 16:00 Temperature 99.3 F 99.5 F Pulse Rate 120 H 120 H 71 Respiratory Rate 24 16 Blood Pressure 109/65 109/65 123/66 Pulse Oximetry 96 95 Oxygen Flow Rate 0 0 Oxygen Delivery Method Room Air Oxygen Flow Rate 0 Narrative Exam Narrative: NAD, alert and oriented, fluent speech, calm. Normocephalic skull, EOMI, anicteric sclera, symmetric pupils. Oropharynx unremarkable, no droop. Neck supple, midline trachea, no adenopathy. Lungs clear, normal rate and effort. Heart irregularly irregular, tachycardic Abdomen is soft, non distended and non tender. Extremities, 1-2+ pitting edema LLE Objective ECG Impression: Atrial fibrillation with rapid ventricular response at 157 beats per minute, nonspecific ST-T abnormality Imaging Echo: Radiologist's impression: 1. The left ventricular contractility is normal. Estimate ejection fraction is greater than 55% with no segmental wall motion abnormalities. No LVH. Unable to comment on diastolic function. 2. The right ventricular contractility is normal. 3. Mild left atrial enlargement. All other cardiac chambers are of normal size. 4. Trace to mild mitral regurgitation. 5. Mild to moderate tricuspid regurgitation with estimated pulmonary systolic artery pressures of 52 to 55 mmHg. 6. No obvious intracardiac masses nor thrombi. 7. No hemodynamically significant pericardial effusion. 8. No obvious intracardiac shunts. Conclusion: Normal biventricular systolic function with mild to moderate valvular insufficiencies and severely elevated pulmonary arterial pressures. The patient was in atrial fibrillation with heart rates between 107-157 bpm during the exam. Left lower extremity Doppler ultrasound 07/11/2024:: Radiologist's impression: No findings of lower extremity deep venous thrombosis. Labs 07/11/24 05:46 07/11/24 05:46 [facility] Social History household members: family Smoking Status: Never smoker alcohol intake: never Assessment & Plan Assessment & Plan narrative: 1. Left Subtrochanteric Femur Fracture, present on admission and active. - S/p orthopedic interventions with IM nail on 07/09/2024 - continue PT/OT - pain management with as needed medications including opiates - significant leg swelling and pain on 07/11, ruled out for DVT by ultrasound. 2. UTI due to pansensitive E coli, present on admission and active. -treated with IV ceftriaxone x3 days 3. Atrial fibrillation with rapid ventricular response, new onset -diltiazem 60 mg p.o. q.6 hours schedule, with IV diltiazem 10 mg every 2 hours as needed heart rate over 120. Switched to long-acting formulation at discharge. -avoid beta-blockers given resting bradycardia on admission -Eliquis 2.5 mg renally dose twice daily -unremarkable echocardiogram, monitor cardiac enzymes 4. Hypercalcemia - improved today with IV fluids. Calcium to 10.3 today. - continue to follow with BMP - PTH is elevated (2x ULN despite high calcium >10, recommend outpatient evaluation with primary care provider for hyperparathyroidism. 5. Anemia, normocytic, unclear chronicity -likely due to fracture and surgical blood loss - continue to trend. Goal Hg >7. - no signs or symptoms of GI bleeding DVT prophylaxis -apixaban Code: Full, surrogate is patient's son Dispo: likely SNF tomorrow [facility] PROFEE Surgical Assistant Certified Document charge(s): No Charge Codes Subsequent inpatient/observation care: [id number]
[2024-07-12 20:35] VITALS: BP 140/66; PULSE 74; RESP 18; TEMP 37.1; O2SAT 96
[2024-07-13] VITALS (13 sets, daily range): BP systolic 96–136; BP diastolic 52–76; PULSE 65–185; RESP 18–24; TEMP 36.7–37.3; O2SAT 94–98
[2024-07-13] MEDS: ACETAMINOPHEN 325 MG TABLET 650 MG PO (00:12)
[2024-07-13] MEDS: OXYCODONE IR 5 MG TABLET PO (00:12)
[2024-07-13] MEDS: LACTATED RINGERS 1,000 ML 100 ML IV ×2 (05:40→15:42)
--- NOTE | 2024-07-13 07:01 | PC.NURSE ---
patient is A & O x 4, forgetful, c/o left hip pain however only agreed to take Tylenol 650 mg x1 and Oxycodone 5 mg x1. Patient refused all other meds including Diltiazem. Importance of Diltiazem explained, patient continued to refuse med. Patient refuses turns and to be repositioned. Patient reluctantly agreed to one repositioning after RN emphasized importance due to pressure ulcer. Drsg to pressure ulcer on buttocks is intact with shadowing.
[2024-07-13 08:17] LABS: Add Manual Diff / Slide Review NO; Basophils Absolute Auto 200 /uL (0-100); Basophils Percent Auto 2.1 % (0-2); Eosinophils Absolute Auto 100 /uL (0-450); Eosinophils Percent Auto 1.6 % (2-4); Hematocrit 25.1 % (36-46); Hemoglobin 8.4 g/dL (12.0-16.0); Lymphocytes Absolute Auto 1600 /uL (1100-4500); Lymphocytes Percent Auto 21.7 % (25-40); Mean Corpuscular HGB Conc 33.3 % (30-36); Mean Corpuscular Hemoglobin 31.5 PG (26-34); Mean Corpuscular Volume 94.5 fL (80-100); Monocytes Absolute Auto 600 /uL (0-900); Monocytes Percent Auto 7.8 % (3-14); Neutrophils Absolute Auto 4900 /uL (1500-7000); Neutrophils Percent Auto 66.8 % (50-75); Platelet Count 219 X10^3/uL (150-400); Red Blood Cell Count 2.66 X10^6/uL (4.0-5.2); Red Cell Distribution Width 14.2 % (11.6-14.8); White Blood Cell Count 7.4 X10^3/uL (4.5-11.0)
[2024-07-13 08:25] LABS: BUN Creatinine Ratio 32.9 (6-22); Blood Urea Nitrogen 23 mg/dL (7-17); Calcium 10.4 mg/dL (8.4-10.2); Carbon Dioxide 27 mmol/L (22-32); Chloride 108 mmol/L (98-107); Estimated Glomerular Filt Rate > 60 mL/min (>60); Glucose 89 mg/dL (80-110); HEMOLYSIS < 15 (0-50); Potassium 4.2 mmol/L (3.4-5.1); Sodium 136 mmol/L (137-145)
[2024-07-13 08:38] LABS: Troponin I 0.087 ng/mL (0.01-0.034)
[2024-07-13 09:02] LABS: Thyroid Stimulating Hormone 0.966 uIU/mL (0.47-4.68)
--- NOTE | 2024-07-13 09:41 | P.PN_ITS ---
Subjective Subjective Date Patient Seen: 07/13/24 Time Patient Seen: 09:42 Interval history: Postop day 4 left subtrochanteric femur fracture status post intramedullary ahmet with Dr. Murray Patient is sleeping in bed this morning. Exam Vital Signs (past 8 hours): - 07/13/24 05:15 07/13/24 08:00 Temperature 98.3 F 98.0 F Pulse Rate 68 74 Respiratory Rate 19 18 Blood Pressure 124/60 113/52 L Pulse Oximetry 97 97 Oxygen Flow Rate 0 0 Oxygen Delivery Method Room Air Oxygen Flow Rate 0 Narrative Exam Narrative: Sleeping in bed. Difficult to awaken. Thigh soft. Aquacel clean dry and intact. Vital signs stable and monitors Objective Labs 07/13/24 08:04 07/13/24 08:04 Labs: Laboratory Results - last 24 hr 07/13/24 08:04 WBC 7.4 RBC 2.66 L Hgb 8.4 L Hct 25.1 L MCV 94.5 MCH 31.5 MCHC 33.3 RDW 14.2 Plt Count 219 Neut % (Auto) 66.8 Lymph % (Auto) 21.7 L [place] % (Auto) 7.8 Eos % (Auto) 1.6 L Baso % (Auto) 2.1 H Neut # (Auto) 4900 Lymph # (Auto) 1600 [place] # (Auto) 600 Eos # (Auto) 100 Baso # (Auto) 200 H Sodium 136 L Potassium 4.2 Chloride 108 H Carbon Dioxide 27 BUN 23 H Creatinine 0.70 Estimated GFR > 60 BUN/Creatinine Ratio 32.9 H Glucose 89 Calcium 10.4 H Magnesium 2.0 Troponin I 0.087 H TSH 0.966 PFSH Social History household members: family Smoking Status: Never smoker alcohol intake: never Assessment & Plan Post-op Postoperative Procedures: Procedures Operation Date: 07/08/24 19:15 <No data on this case meets the specified criteria> Operation Date: 07/09/24 17:00 Actual Procedure Side Surgeon p Intramedullary Nailing Femur Left Willy Murray MD Postoperative day: 4 Postoperative plan narrative: Pt may be toe-touch weightbearing only on left leg for 6 weeks. F/u w/ [facility] in 2 weeks for wound check and repeat imaging. Pain control, VTE prophylaxis, disposition per hospitalist service. Hemoglobin 8.4 this morning On Eliquis renally dosed. Eliquis and SCDs for DVT prophylaxis Time Spent With Patient Time with patient: less than 15 minutes
--- NOTE | 2024-07-13 11:47 | P.PN_ITS ---
Subjective Subjective Date Patient Seen: 07/13/24 Time Patient Seen: 10:38 Interval history: 84 y/o without significant PMH, on no medications, sustained GLF at home under unknown circumstances. Afterwards couldn't get up for 17 hours and presented with left subtrochanteric, minimally displaced femoral fracture. Underlying UTI possibly contributing to fall. Given antibiotic and admitted to medicine, NPO, on IVFs, for likely ORIF in AM. Interval history: Patient has no complaints this morning. She developed atrial fibrillation with rapid ventricular response yesterday but has had no further episodes overnight. She is refused Eliquis and diltiazem dosing. She notes that she has a Yarsanism biomedical analytical scientist and in his against her buddhism to accept medical treatment. She acknowledges that she accepted medical treatment of her femur fracture, though does not wish to receive rate control or stroke prophylaxis agents. She recognizes that she may develop recurrent tachycardic rhythm or stroke, though she clearly states that she does not wish to receive medicines prevent these conditions given her buddhism. She also asks that her son be informed of this. Her son Logan is informed by telephone. He states he disagrees with her decision and will talk to her further about this when he comes in later today. He asks if there is any way to get her to accept or receive treatment. He is informed that these are her wishes, that she is fully competent to make them, and that he would need to talk to her about this. He expresses understanding. Exam Vital Signs (past 8 hours): - 07/13/24 05:15 07/13/24 08:00 Temperature 98.3 F 98.0 F Pulse Rate 68 74 Respiratory Rate 19 18 Blood Pressure 124/60 113/52 L Pulse Oximetry 97 97 Oxygen Flow Rate 0 0 Oxygen Delivery Method Room Air Oxygen Flow Rate 0 Narrative Exam Narrative: NAD, alert and oriented, fluent speech, calm. Normocephalic skull, EOMI, anicteric sclera, symmetric pupils. Oropharynx unremarkable, no droop. Neck supple, midline trachea, no adenopathy. Lungs clear, normal rate and effort. Heart regular rate and rhythm without murmurs Abdomen is soft, non distended and non tender. Extremities, 1-2+ pitting edema LLE Objective ECG Impression: Atrial fibrillation with rapid ventricular response at 157 beats per minute, nonspecific ST-T abnormality Imaging Echo: My impression: 07/12/2024 Radiologist's impression: 1. The left ventricular contractility is normal. Estimate ejection fraction is greater than 55% with no segmental wall motion abnormalities. No LVH. Unable to comment on diastolic function. 2. The right ventricular contractility is normal. 3. Mild left atrial enlargement. All other cardiac chambers are of normal size. 4. Trace to mild mitral regurgitation. 5. Mild to moderate tricuspid regurgitation with estimated pulmonary systolic artery pressures of 52 to 55 mmHg. 6. No obvious intracardiac masses nor thrombi. 7. No hemodynamically significant pericardial effusion. 8. No obvious intracardiac shunts. Conclusion: Normal biventricular systolic function with mild to moderate valvular insufficiencies and severely elevated pulmonary arterial pressures. The patient was in atrial fibrillation with heart rates between 107-157 bpm during the exam. Left lower extremity Doppler ultrasound 07/11/2024:: Radiologist's impression: No findings of lower extremity deep venous thrombosis. Labs 07/13/24 08:04 07/13/24 08:04 Labs: Laboratory Results - last 24 hr 07/13/24 08:04 WBC 7.4 RBC 2.66 L Hgb 8.4 L Hct 25.1 L MCV 94.5 MCH 31.5 MCHC 33.3 RDW 14.2 Plt Count 219 Neut % (Auto) 66.8 Lymph % (Auto) 21.7 L [place] % (Auto) 7.8 Eos % (Auto) 1.6 L Baso % (Auto) 2.1 H Neut # (Auto) 4900 Lymph # (Auto) 1600 [place] # (Auto) 600 Eos # (Auto) 100 Baso # (Auto) 200 H Sodium 136 L Potassium 4.2 Chloride 108 H Carbon Dioxide 27 BUN 23 H Creatinine 0.70 Estimated GFR > 60 BUN/Creatinine Ratio 32.9 H Glucose 89 Calcium 10.4 H Magnesium 2.0 Troponin I 0.087 H TSH 0.966 PFSH Social History household members: family Smoking Status: Never smoker alcohol intake: never Assessment & Plan Assessment & Plan narrative: 1. Left Subtrochanteric Femur Fracture, present on admission and active. - S/p orthopedic interventions with IM nail on 07/09/2024 - continue PT/OT - pain management with as needed medications including opiates. It is noted she accepted at a dose of oxycodone 5 mg morning. - significant leg swelling and pain on 07/11, ruled out for DVT by ultrasound. 2. UTI due to pansensitive E coli, present on admission and active. -treated with IV ceftriaxone x3 days 3. Atrial fibrillation with rapid ventricular response, new onset, converted to sinus rhythm spontaneously -the patient refuses treatment due to Yarsanism sciences status Ordered diltiazem 60 mg p.o. q.6 hours schedule, with IV diltiazem 10 mg every 2 hours as needed heart rate over 120. She understands she may refuse. She declines medications at discharge. -avoid beta-blockers given resting bradycardia on admission -Eliquis 2.5 mg renally dose twice daily. She has declined this, consistent with above discussion. -unremarkable echocardiogram 4. Borderline elevated troponin due to 3. -no evidence of myocardial infarction. Likely due to demand ischemia. No further treatment requested or indicated. 5. Hypercalcemia - improved today with IV fluids. Calcium to 10.3 today. - continue to follow with BMP - PTH is elevated (2x ULN despite high calcium >10, recommend outpatient evaluation with primary care provider for hyperparathyroidism. 6. Anemia, normocytic, unclear chronicity -likely due to fracture and surgical blood loss - continue to trend. Goal Hg >7. - no signs or symptoms of GI bleeding 7. 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 -continue to offer treatment. She may certainly decline. -her son will talk to her further about this today given his expressed disagreement . DVT prophylaxis -apixaban Code: Full, surrogate is patient's son, though at this time she is fully competent to make her own medical decisions. Disposition: The patient is medically stable for discharge today. However the long-term facility is unable to accept her and will accept her tomorrow. Dispo: likely SNF tomorrow PROFEE Catering Associate Document charge(s): No Charge Codes Subsequent inpatient/observation care: [id number]
--- NOTE | 2024-07-13 12:11 | PT-IP ANOTE ---
Checked on pt and pt has her eyes closed and opens up momentarily but closes them back again. pt able to answer questions and agreed to get up. set up completed but when PT asked pt to sit up, stated that she does not want to move. attempted to educate pt on importance of mobility but pt stated Don't argue with me. repositioned blankets back on pt. call light and table placed next to pt. Pt refused PT. informed nurse.
--- NOTE | 2024-07-13 14:56 | CM.DPNOTE ---
DCP note BODY REPAIRER reviewed EMR Per provider, pt medically stable to dc to SNF. stable afib withRVR, due to pt's orthodoxy background pt does not want to pursue treatment for afib. Per Marina at , can accept Monday at 1130. PASRR previously completed. BODY REPAIRER met with pt in room, sleepy. confirmed preference to dc to [facility] tomorrow. deny questions. BODY REPAIRER lvm with son Logan (p [phone]) to review DCP. P: anticipate dc to [facility] tomorrow at 1130. CM team will continue to follow closely for coordination. NEFTALI Patiño
[2024-07-13] MEDS: SODIUM CHLORIDE 0.9% FLUSH 10 ML IV (20:43)
[2024-07-13] MEDS: dilTIAZem 25 MG/5 ML SDV 10 MG IV ×2 (22:13→23:15)
[2024-07-13] MEDS: dilTIAZem 30 MG TABLET 60 MG PO (23:02)
[2024-07-14] VITALS (10 sets, daily range): BP systolic 94–105; BP diastolic 54–65; PULSE 91–134; RESP 19–24; TEMP 37.1–37.3; O2SAT 94–96
[2024-07-14] MEDS: dilTIAZem 25 MG/5 ML SDV 10 MG IV ×2 (00:16→03:22)
[2024-07-14] MEDS: LACTATED RINGERS 1,000 ML 100 ML IV (02:12)
[2024-07-14] MEDS: dilTIAZem 30 MG TABLET 60 MG PO (05:42)
--- NOTE | 2024-07-14 07:45 | PC.NURSE ---
Patient A & O x 4, forgetful at times. Patient was refusing all meds, including Eliquis, Diltiazem, and analgesics. Patient also refusing turns, repositioning, IS, deep breathing, and SCDs. This RN explained importance of all of the above, with an emphases on why the Eliquis and Diltiazem are important. Also, it was emphasized that the pressure sore on her buttocks will get worse if she continues to refuse repositioning. Patient continued to refuse all of the above. At about 2205 patient converted from SR to A-fib with RVR, rate 180s. Patient denied any chest pain, palpitations, or SOB. At this point patient agreed to take a dose of the prn Diltiazem. Diltiazem 10 mg IV given with improvement in HR, then the rate increased again to 180s. Dr Boyd notified of heart rate and rhythm, Diltiazem 10 mg IV x1 and the scheduled Diltiazem po given as ordered. Patient continued to be in A-fib with RVR. A total of 4 doses of Diltizem given throughout the night. Patient took the 2 scheduled doses of Diltiazem crushed in chocolate pudding. Per tele, patient currently in A-fib rate 110. After patient went into A-fib, she became more cooperative and agreed to wear the SCDs and agreed to one turn to assess buttocks and reposition. Drsg to buttocks is intact with shadowing. The bed is being turned from side-side as much as the patient will allow, and a waffle cushion is under buttocks.
--- NOTE | 2024-07-14 09:02 | PM.DS.IH.1 ---
History of Present Illness History of Present Illness Date Patient Seen: 07/14/24 Time Patient Seen: 08:10 Date of Onset of Symptoms: 08/08/24 Chief complaint: Fall/Down since 99 Narrative: 84 y/o without significant PMH, on no medications, sustained GLF at home under unknown circumstances. Afterwards couldn't get up for 17 hours and presented with left subtrochanteric, minimally displaced femoral fracture. Underlying UTI possibly contributing to fall. Given antibiotic and admitted to medicine, NPO, on IVFs, for likely ORIF in AM. Discharge Providers Provider Date of admission: 07/08/24 00:02 Discharge Date: 07/14/24 Primary care physician: *ED Temp* Consults: 07/07/24 19:23 Consult to [facility] [place] - Wallpaper Hanger Helper Stat Comment: Wallpaper Hanger Helper Consult needed for:: Other reason (Comment) Comment: Pt on the ground at home for extended period of time. It was noted that pt's family was at home with her for the 17hours she was on the ground. 07/08/24 01:19 Consult to Dietitian, Adult Routine Comment: Reason For Exam: malnutrition 07/08/24 05:02 Consult to CLEAR COAT SPRAYER - Wallpaper Hanger Helper Routine Comment: Wallpaper Hanger Helper Consult needed for:: Unable to care for self Comment: pt down at home on the floor for more than 10 hours. lives with son 07/09/24 19:07 Consult to Discharge Planning Routine Comment: Consult to Occupational Therapy Evaluate & Treat Comment: Physician Instructions: Evaluate and treat Consult to Physical Therapy Evaluate & Treat Comment: Physician Instructions: Evaluate and Treat Discharge provider: Isidoro Watson MD Summary Hospital Course Discharge Diagnosis: 1. Left Subtrochanteric Femur Fracture, pathologic due to underlying osteoporosis, s/p ORIF. 2. UTI due to pansensitive E coli. 3. Atrial fibrillation with rapid ventricular response, new onset, converted to sinus rhythm spontaneously. 4. Borderline elevated troponin due to 3. 5. Hypercalcemia due to hyperparathyroidism. 6. Anemia due to hip fracture and surgical blood loss. 7. Osteoporosis, consider secondary to hyperparathyroidism. 8. 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 Hospital Course: Patient was admitted and underwent orthopedic interventions with IM nail placement on 07/09/2024 without incident and underwent subsequent postoperative therapy. She developed an episode of atrial fibrillation with rapid ventricular response on 07/12/2024, converting spontaneously to sinus rhythm after a dose of IV diltiazem. She was treated with apixaban. However, the patient expressed that given her Yazdanism sciences episcopalian status she did not wish additional treatment beyond which she had received already, with the understanding that she was at risk for recurrent episodes of tachyarrhythmia and increased risk of stroke. She was offered rate control agents and anticoagulation, as reflected in the discharge summary with diltiazem and apixaban, however express that she likely would decline these medications. She wished however, for her Sanchez catheter to be kept in place until she was ambulatory enough to make it to the bathroom. A pansensitive E coli UTI was treated and resolved during the admission. She was mildly hypercalcemic with calcium of 11.6, improved 10.4 at discharge, with a serum PTH of 129, and outpatient follow-up with primary care providers recommended to rule out secondary osteoporosis from this underlying condition. She was mildly anemic postoperatively but no transfusion was medically indicated. Wallpaper Hanger Helper arranged for discharge [facility] facility before she could return home. Her son Logan was kept up-to-date of her condition. Status at Discharge Cognitive/behavioral status at discharge: oriented Functional status at discharge: uses cane/walker Overall status at discharge: patient is progressing back to baseline Time Spent with Patient Time spent: Greater than 30 minutes Exam Vital Signs (past 8 hours): - 07/14/24 03:22 07/14/24 03:36 07/14/24 04:00 Temperature 99.2 F Pulse Rate 134 H 110 H 96 H Respiratory Rate 22 24 Blood Pressure 94/59 L 105/63 102/61 Pulse Oximetry 95 95 Oxygen Flow Rate 0 0 07/14/24 05:42 07/14/24 06:00 07/14/24 08:07 Temperature 98.8 F 98.9 F Pulse Rate 112 H 110 H 91 H Respiratory Rate 24 19 Blood Pressure 103/54 L 103/54 L 103/64 Pulse Oximetry 94 95 Oxygen Flow Rate 0 0 Oxygen Delivery Method Room Air Oxygen Flow Rate 0 Narrative Exam Narrative: NAD, alert and oriented, fluent speech, calm. Normocephalic skull, EOMI, anicteric sclera, symmetric pupils. Oropharynx unremarkable, no droop. Neck supple, midline trachea, no adenopathy. Lungs clear, normal rate and effort. Heart regular rate and rhythm without murmurs Abdomen is soft, non distended and non tender. Extremities, 1-2+ pitting edema LLE Objective ECG Impression: Atrial fibrillation with rapid ventricular response at 157 beats per minute, nonspecific ST-T abnormality Imaging Echo: My impression: 07/12/2024 Radiologist's impression: 1. The left ventricular contractility is normal. Estimate ejection fraction is greater than 55% with no segmental wall motion abnormalities. No LVH. Unable to comment on diastolic function. 2. The right ventricular contractility is normal. 3. Mild left atrial enlargement. All other cardiac chambers are of normal size. 4. Trace to mild mitral regurgitation. 5. Mild to moderate tricuspid regurgitation with estimated pulmonary systolic artery pressures of 52 to 55 mmHg. 6. No obvious intracardiac masses nor thrombi. 7. No hemodynamically significant pericardial effusion. 8. No obvious intracardiac shunts. Conclusion: Normal biventricular systolic function with mild to moderate valvular insufficiencies and severely elevated pulmonary arterial pressures. The patient was in atrial fibrillation with heart rates between 107-157 bpm during the exam. Left lower extremity Doppler ultrasound 07/11/2024:: Radiologist's impression: No findings of lower extremity deep venous thrombosis. *: Radiologist's impression: Left hip x-ray 07/07/2024: Acute, mildly displaced left subtrochanteric femoral fracture. Chest x-ray 07/07/2024: No acute cardiopulmonary abnormality is seen. Left hip x-ray 07/09/2024: Intraoperative views during left proximal femoral fracture fixation. Labs 07/13/24 08:04 07/13/24 08:04 Labs: Laboratory Results - last 24 hr 07/13/24 08:04 TSH 0.966 PFSH Social History household members: family Smoking Status: Never smoker alcohol intake: never Discharge Plan Discharge Plan Patient Disposition: SNF Transfer to: [facility] Consult as needed: Dental, Hearing, Mental health, Podiatry and Vision Provider Discharge Comment: Remove sanchez catheter 1 week or when ambulatory to toilet Discharge orders & Medications Prescriptions: New acetaminophen 325 mg Tablet 650 mg PO Q6H PRN (Reason: Fever/Mild Pain (1-3)) Qty: 30 0RF Eliquis 5 mg Tablet 2.5 mg PO BID Qty: 60 0RF diltiazem HCl 240 mg capsule,extended release 24hr 240 mg PO DAILY Qty: 30 0RF bisacodyl 10 mg Suppository 10 mg OK PRN PRN (Reason: Constipation) Qty: 12 0RF docusate sodium 100 mg Capsule 100 mg PO BID Qty: 30 0RF Follow up/Referrals: *Temp,ED* [Primary Care Provider] - Willy Murray MD [Physician] - 2 Weeks (Follow up w/ PA or Dr Murray at [facility] in 2 weeks for wound check.) Diet/Activity/Treatments Activity: Toe-touch weightbearing to left lower extremity x 6 weeks. Skin/Wound/Dressing Care Dressing: May shower. If dressing becomes wet or dirty, remove and replace with clean, dry gauze. No bathing or otherwise soaking incisions. Do not apply any creams, lotions, or ointments to incisions. Visit Report/Discharge Packet Stand Alone Forms: Patient Portal/API Discharge Data Primary Care Provider: *Leonila,ED* Quality MIPS - Admit I confirm the patient?s Advance Care Plan is present, Code status is documented, Surrogate decision maker is in patient?s record [If Yes, STOP here]: Yes [facility] - Meds 'Current medications' to include all prescriptions, [id number] products, herbals, cannabis/cannabidiol products, and vitamin/mineral/dietary (nutritional) supplements. I have utilized all available resources to obtain, update, or review the patient?s current medications. [If Yes, STOP here]: Yes [facility] - DC The patient has a history of heart transplant or Left Ventricular Assist Device (LVAD). If yes, STOP here.: No The patient has current or prior documentation of left ventricular ejection fraction (LVEF) less than or equal to 40%, or moderate or severely depressed left ventricular systolic function.: No A. The patient was prescribed or already taking an Angiotensin-Converting Enzyme (SHERRIE) Inhibitor, or Angiotensin Receptor Radha (ARB).: No B. The patient was prescribed or already taking a beta-radha. [If Yes to Both A & B, STOP here]: No Patient not prescribed/taking SHERRIE or ARB, no reason given.: No Patient not prescribed/taking beta-radha, no reason given.: No PROFEE Charge Codes Discharge inpatient/observation: [id number]
[2024-07-14] MEDS: DOCUSATE 100 MG CAPSULE PO (09:36)
[2024-07-14] MEDS: dilTIAZem CD 120 MG CAP 240 MG PO (09:36)
[2024-07-14] MEDS: ACETAMINOPHEN 325 MG TABLET 650 MG PO (09:36)
[2024-07-14] MEDS: polyethylene glycoL 3350 17 GM POWD.PACK PO (09:37)
[2024-07-14] MEDS: APIXABAN 5 MG TABLET 2.5 MG PO (09:38)
--- NOTE | 2024-07-14 10:54 | PC.NURSE ---
Woke Pt at 0730 to introduce self and role. Pt seems a bit hard of hearing and slow to answer. Pt denied pain, nausea, or shortness of breath. Discussed ordered meds for Pt-Pt declined to take any medications this morning despite discussing purpose of medication. Pt agrees to discuss again after bkfst. Pt declines offer to reposition Pt in bed for bkfst but agreed to her HOB elevated for eating. Bed alarm on for safety. Pt agrees to call for assistance as needed. Back to Pt room to discuss medications-Pt very resistant to taking medications but agreed and was given all scheduled meds as well as Tylenol, though Pt stated she did not know if she was having pain and can't think about it. Again attempted to reposition Pt and Pt again refused. Pt is currently bridged with a waffle cushion under her bottom and with heels floated. Back to Pt room to check Pt's bottom-Pt again very resistant to being turned but finally agreed to be turned onto her side for me to inspect her bottom-Pt denies pain to her bottom but Allevyn dsg has shadow drainage visible. Removed dsg and replaced with clean dsg. returned Pt to her preferred semi-recumbent state with heels floated, bridged, and waffle cushion in place.
--- NOTE | 2024-07-14 10:58 | CM.DPNOTE ---
DCP note MELON PACKER reviewed EMR Per chart, pt cleared to dc to SNF. Per Lulu, at can take pt at 1100 today. MELON PACKER emailed FS/DC sum, order, signed med list, and PASRR to Lulu at . included diet order. Lulu reports she will tell team that pt refusing meds for afib with RVR to not bring pt back to ED if pt in RVR. MELON PACKER spoke with pt in room. Agreeable to plan. MELON PACKER updated RN/gave report number. MELON PACKER updated SAMPLE SUPERVISOR on dc time. MELON PACKER placed signed med list and PASRR in chart. MELON PACKER spoke with son Logan ([phone]) reviewed plan. remains in agreement/preference to dc to SNF before coming back home. will plan to visit her at this afternoon. P: dc today to at 1100. no further CM needs at this time. CM team will continue to follow as needed NEFTALI Patiño
--- NOTE | 2024-07-14 11:21 | PC.NURSE ---
Called report to Minerva at [facility] and answered all questions. Pt is packed up and ready for discharge when transport arrives.
--- NOTE | 2024-07-14 12:34 | PC.NURSE ---
Pt hoyered into w/c from [facility] and transferred to [facility] by [facility] personnel with all belongings.
== END 2024-07-14 11:45 | DRG 481 ==
LOC: ED 07-08 00:01 → AC 07-08 00:02
PROVIDERS: Hospitalist; Internal Medicine; Orthopaedic Surgery; Admitting Provider Internal Medicine; Emergency Provider Emergency Medicine; Referring Provider Emergency Medicine; Visit Provider Internal Medicine
PROC: 0QS706Z Reposition Left Upper Femur with Intramedullary Internal Fixation Device, Open Approach (ICD-10-PCS; CPT 27245; principal; 2024-07-09 17:00)
DX: M80.052A Age-related osteoporosis with current pathological fracture, left femur, initial encounter for fracture (principal); D62 Acute posthemorrhagic anemia; M62.82 Rhabdomyolysis; N39.0 Urinary tract infection, site not specified; I48.91 Unspecified atrial fibrillation; E86.0 Dehydration; B96.20 Unspecified Escherichia coli [E. coli] as the cause of diseases classified elsewhere; R79.89 Other specified abnormal findings of blood chemistry; E21.3 Hyperparathyroidism, unspecified; W18.30XA Fall on same level, unspecified, initial encounter; Z65.8 Other specified problems related to psychosocial circumstances
CPT/HCPCS: 36415; 71045; 73502; 76000; 80048; 80053; 81001; 82310; 82550; 83735; 83970; 84443; 84484; 85025; 85027; 85610; 87077; 87086; 87186; 93005; 93306; 93971; 96361; 96365; 97162; 97166; 97530; 99284; 99291; C1713; J0131; J0690; J0696; J1100; J1171; J1650; J2405; J2704; J3010